=== PATIENT | male | born 1955 | race Caucasian/White ===

== ENCOUNTER 2018-08-20 11:38 | Inpatient (IN) | payer MEDICAID ==
[2018-08-20] MEDS ORDERED: Sodium Chloride 0.9% 1,000 ML IV ONE (12:31)
--- NOTE | 2018-08-20 12:32 | C.PDOC ---
History Of Present Illness 62 yo male comes in for evaluation of Right inguinal painful swelling developed for past month. Pt reports, was seen by Dr. Leung last week and diagnosed with Right inguinal hernia, was referred to ED for further evaluation, possible admission. Pt reports, pain is gradually worsening over time, (+) nausea. Pt sts, CT A/P performed last week with . Otherwise, pt denies fever, chills, known trauma or injury, CP, SOB, dyspnea, palpitation, abd. pain, vomiting, diarrhea, back pain, denies UTI sx, testicular pain or swelling. Ambulate to Ed, appears in pain. Time Seen by Provider: 08/20/18 11:51 Chief Complaint (Nursing): Groin Pain History Per: Patient Past Medical History Reviewed: Historical Data, Nursing Documentation, Vital Signs - Medical History PMH: Atrial Fibrillation Family History: States: No Known Family Hx - Social History Hx Tobacco Use: No Hx Alcohol Use: No Hx Substance Use: No - Immunization History Hx Tetanus Toxoid Vaccination: No Hx Influenza Vaccination: No Hx Pneumococcal Vaccination: No Review Of Systems Except As Marked, All Systems Reviewed And Found Negative. Constitutional: Negative for: Fever, Chills ENT: Negative for: Throat Pain Cardiovascular: Negative for: Chest Pain, Palpitations Respiratory: Negative for: Cough, Shortness of Breath, Wheezing Gastrointestinal: Positive for: Nausea. Negative for: Vomiting, Abdominal Pain, Diarrhea, Melena, Hematochezia, Hematemesis Genitourinary: Positive for: Other ((+) Right ibguinal pain, swelling). Negative for: Dysuria, Frequency, Penile Discharge, Scrotal Pain, Penile Pain Musculoskeletal: Negative for: Neck Pain, Back Pain Skin: Negative for: Rash Neurological: Negative for: Weakness, Numbness, Altered Mental Status, Headache, Dizziness Physical Exam - Physical Exam Appears: Well, Non-toxic, No Acute Distress Skin: Normal Color, Warm, Dry, No Rash Head: Normacephalic Eye(s): bilateral: PERRL Nose: No Flaring, No Discharge Oral Mucosa: Moist Throat: No Erythema, No Drooling Neck: Supple Cardiovascular: Rhythm Regular, No Murmur, No JVD Respiratory: No Decreased Breath Sounds, No Accessory Muscle Use, No Stridor, No Wheezing Gastrointestinal/Abdominal: Soft, No Tenderness, No Distention, No Guarding, No Rebound Back: Normal Inspection Male Genital: No Testicular Tenderness, No Testicular Swelling, Inguinal Tenderness (Right), Inguinal Swelling (Right) Extremity: Normal ROM, No Deformity, No Swelling Neurological/Psych: Oriented x3, Normal Speech, Normal Motor, Normal Sensation, Normal Reflexes ED Course And Treatment - Laboratory Results Result Diagrams: 08/20/18 13:44 08/20/18 13:44 Lab Interpretation: No Acute Changes ECG: Interpreted By Me, Viewed By Me ECG Interpretation: No Acute Changes Interpretation Of ECG: AFib@89/min O2 Sat by Pulse Oximetry: 100 Pulse Ox Interpretation: Normal Progress Note: case discussed with , confirmed for admission with Incarcerated Right inguinal hernia for further surgical tx. results review and discussed with pt, agrees with plan. Disposition - Disposition Disposition: HOSPITALIZED Disposition Time: 12:31 Condition: STABLE Forms: [facility] (Greenlandic) - Clinical Impression Clinical Impression: Incarcerated inguinal hernia
[2018-08-20 13:49] LABS: EOS # 0.1 K/uL (0.0-0.7); MEAN CORPUSCULAR HEMOGLOBIN 31.1 pg (27.0-31.0); MEAN CORPUSCULAR HGB CONC 33.8 g/dL (33.0-37.0); NEUT # 3.4 K/uL (1.8-7.0); NRBC % 0.1 % (0.0-2.0)
[2018-08-20 13:53] LABS: BASO % 0.9 % (0.0-2.0); EOS % 2.6 % (0.0-4.0); HEMOGLOBIN 13.5 g/dL (12.0-18.0); LYMPH # 1.2 K/uL (1.0-4.3); LYMPH % 23.2 % (20.0-40.0); MEAN CELL VOLUME 92.1 fL (80.0-94.0); MEAN PLATELET VOLUME 11.8 fL (7.2-11.7); MONO # 0.5 K/uL (0.0-0.8); MONO % 9.2 % (0.0-10.0); NEUT % 64.1 % (50.0-75.0); RBC 4.35 Mil/uL (4.40-5.90); RED CELL DISTRIBUTION WIDTH 14.2 % (11.5-14.5); WHITE BLOOD COUNT 5.4 K/uL (4.8-10.8)
[2018-08-20 13:58] LABS: INR 1.2; PROTHROMBIN TIME 13.2 SECONDS (9.7-12.2)
[2018-08-20 14:03] LABS: BLOOD UREA NITROGEN 19 mg/dL (9-20); CALCIUM 8.8 mg/dl (8.6-10.4); GFR NON-AFRICAN AMERICAN > 60
--- NOTE | 2018-08-20 18:09 | CP.PCM.PN ---
Subjective - Date & Time of Evaluation Date of Evaluation: 08/20/18 Time of Evaluation: 18:08 - Subjective Subjective: Reason For Consultation: Pre Op cardiac risk assessment 62 yo male unknown to me comes in for evaluation of Right inguinal painful swell ing developed for past month. Pt reports, was seen by Dr. Leung last week and diagnosed with Right inguinal hernia, was referred to ED for further evaluation, possible admission. Pt reports, pain is gradually worsening over time, (+) nausea. Pt sts, CT A/P performed last week with . O therwise, pt denies fever, chills, known trauma or injury, CP, SOB, dyspnea, palpitation, abd. pain, vomiting, diarrhea, back pain, denies UTI sx, testicular pain or swelling. Ambulate to Ed, appears in pain. Chief Complaint (Nursing): Groin Pain History Per: Patient Past Medical History Reviewed: Historical Data, Nursing Documentation, Vital Signs - Medical History PMH: Atrial Fibrillation Family History: States: No Known Family Hx - Social History Hx Tobacco Use: No Hx Alcohol Use: No Hx Substance Use: No - Immunization History Hx Tetanus Toxoid Vaccination: No Hx Influenza Vaccination: No Hx Pneumococcal Vaccination: No Review Of Systems Except As Marked, All Systems Reviewed And Found Negative. Constitutional: Negative for: Fever, Chills ENT: Negative for: Throat Pain Cardiovascular: Negative for: Chest Pain, Palpitations Respiratory: Negative for: Cough, Shortness of Breath, Wheezing Gastrointestinal: Positive for: Nausea. Negative for: Vomiting, Abdominal Pain, Diarrhea, Melena, Hematochezia, Hematemesis Genitourinary: Positive for: Other ((+) Right ibguinal pain, swelling). Negative for: Dysuria, Frequency, Penile Discharge, Scrotal Pain, Penile Pain Musculoskeletal: Negative for: Neck Pain, Back Pain Skin: Negative for: Rash Neurological: Negative for: Weakness, Numbness, Altered Mental Status, Headache, Dizziness Physical Exam - Physical Exam Appears: Well, Non-toxic, No Acute Distress Skin: Normal Color, Warm, Dry, No Rash Head: Normacephalic Eye(s): bilateral: PERRL Nose: No Flaring, No Discharge Oral Mucosa: Moist Throat: No Erythema, No Drooling Neck: Supple Cardiovascular: Rhythm Regular, No Murmur, No JVD Respiratory: No Decreased Breath Sounds, No Accessory Muscle Use, No Stridor, No Wheezing Gastrointestinal/Abdominal: Soft, No Tenderness, No Distention, No Guarding, No Rebound Back: Normal Inspection Male Genital: No Testicular Tenderness, No Testicular Swelling, Inguinal Tenderness (Right), Inguinal Swelling (Right) Extremity: Normal ROM, No Deformity, No Swelling Neurological/Psych: Oriented x3, Normal Speech, Normal Motor, Normal Sensation, Normal Reflexes A/P 62 Male unknown to me consulted for Cardiac risk assessment Recommend stress test and ECHO prior to surgery Objective - Vital Signs/Intake and Output Vital Signs (last 24 hours): Temp Pulse Resp BP Pulse Ox 97.9 F 98 H 20 155/107 H 100 08/20/18 18:05 08/20/18 18:05 08/20/18 18:05 08/20/18 18:05 08/20/18 18:05 - Medications Medications: Current Medications Dextrose/Sodium Chloride (Dextrose 5%/0.45% Ns 1000 Ml) 1,000 mls @ 80 mls/hr IV [id number] Ondansetron HCl (Zofran Inj) 4 mg IVP Q6 PRN PRN Reason: Nausea/Vomiting Pantoprazole Sodium (Protonix Inj) 40 mg IVP DAILY [facility] - Labs Labs: 08/20/18 13:44 08/20/18 13:44 PT 13.2 SECONDS (9.7-12.2) H 08/20/18 13:44 INR 1.2 08/20/18 13:44 APTT 32 SECONDS (21-34) 08/20/18 13:44
[2018-08-20] MEDS: Dextrose 5%/0.45% NS 1,000 ML IV SCH (19:48)
[2018-08-21] MEDS: Dextrose 5%/0.45% NS 1,000 ML IV SCH ×2 (04:15→16:45)
[2018-08-21 07:20] LABS: BASO # 0.1 K/uL (0.0-0.2); BASO % 1.2 % (0.0-2.0); EOS # 0.2 K/uL (0.0-0.7); EOS % 3.4 % (0.0-4.0); HEMOGLOBIN 12.6 g/dL (12.0-18.0); LYMPH # 1.1 K/uL (1.0-4.3); LYMPH % 23.3 % (20.0-40.0); MEAN CELL VOLUME 91.3 fL (80.0-94.0); MEAN CORPUSCULAR HEMOGLOBIN 30.6 pg (27.0-31.0); MEAN CORPUSCULAR HGB CONC 33.5 g/dL (33.0-37.0); MEAN PLATELET VOLUME 12.1 fL (7.2-11.7); MONO # 0.4 K/uL (0.0-0.8); MONO % 9.1 % (0.0-10.0); NEUT # 2.9 K/uL (1.8-7.0); NRBC % 0.1 % (0.0-2.0); PLATELET COUNT 73 K/uL (130-400); RBC 4.13 Mil/uL (4.40-5.90); WHITE BLOOD COUNT 4.6 K/uL (4.8-10.8)
[2018-08-21 07:52] LABS: BLOOD UREA NITROGEN 20 mg/dL (9-20); CALCIUM 8.4 mg/dl (8.6-10.4); GFR NON-AFRICAN AMERICAN > 60
[2018-08-21] MEDS ORDERED: Caffeine Citrated **INJ** 20 MG/ML IV ONE (07:52)
[2018-08-21 10:05] LABS: BASOPHIL 1 % (0-2); EOSINOPHIL 3 % (0-4); LYMPHOCYTE 26 % (20-40); MONOCYTE 7 % (0-10); NEUTROPHIL 62 % (50-75); PLATELET ESTIMATE DECREASED (NORMAL); REACTIVE LYMPHOCYTES 1 % (0-0); TOTAL CELLS COUNTED 100
[2018-08-21] MEDS: diltiaZEM 240 mg/24 Hours CD Cap PO SCH (10:38)
[2018-08-21 11:55] LABS: INR 1.2; PROTHROMBIN TIME 12.9 SECONDS (9.7-12.2)
[2018-08-21 12:14] LABS: ALB/GLOB RATIO 1.6 (1.0-2.1); ALBUMIN 4.2 g/dL (3.5-5.0); ALT/SGPT 33 U/L (21-72); AST/SGOT 30 U/L (17-59); BLOOD UREA NITROGEN 18 mg/dL (9-20); CALCIUM 8.7 mg/dl (8.6-10.4); GFR NON-AFRICAN AMERICAN > 60
[2018-08-21 12:33] LABS: HEPATITIS B SURFACE AG Negative (NEGATIVE)
[2018-08-21 12:39] LABS: HEPATITIS A IGM NEGATIVE (NEGATIVE); HEPATITIS B CORE AB NEGATIVE (NEGATIVE)
[2018-08-21 14:25] LABS: HEPATITIS C ANTIBODY Reactive (NEGATIVE)
--- NOTE | 2018-08-21 14:35 | CP.PCM.PN ---
Subjective - Date & Time of Evaluation Date of Evaluation: 08/21/18 Time of Evaluation: 14:30 - Subjective Subjective: Progress note. Attending: Dr. Delgado. Pt seen and examined at bedside. No acute distress. No events overnight. No fevers, chills, vomiting, diarrhea. Getting worked up for thrombocytopenia. Inguinal hernia. Objective - Vital Signs/Intake and Output Vital Signs (last 24 hours): Temp Pulse Resp BP Pulse Ox 98.2 F 75 20 125/80 98 08/21/18 08:00 08/21/18 08:00 08/21/18 08:00 08/21/18 08:00 08/21/18 08:00 Intake and Output: 08/21/18 08/21/18 06:59 18:59 Intake Total 18 640 Balance 18 640 - Medications Medications: Current Medications Carvedilol (Coreg) 25 mg PO BID [facility] Last Admin: 08/21/18 10:38 Dose: Not Given Diltiazem HCl (Cardizem) 60 mg PO TID [facility] Last Admin: 08/21/18 14:22 Dose: Not Given Diltiazem HCl (Cardizem Cd) 240 mg PO DAILY [facility] Last Admin: 08/21/18 10:38 Dose: Not Given Docusate Sodium (Colace) 100 mg PO BID [facility] Last Admin: 08/21/18 10:01 Dose: Not Given Enalapril Maleate (Vasotec) 5 mg PO DAILY [facility] Last Admin: 08/21/18 10:39 Dose: Not Given Dextrose/Sodium Chloride (Dextrose 5%/0.45% Ns 1000 Ml) 1,000 mls @ 80 mls/hr IV .[id number] [facility] Last Admin: 08/21/18 04:15 Dose: Not Given Influenza Virus Vaccine (Fluzone Quad [id number]) 60 mcg IM .ONCE ONE Stop: 08/23/18 10:01 Nicotine (Nicoderm Cq) 1 patch TD DAILY [facility] Last Admin: 08/21/18 10:39 Dose: Not Given Ondansetron HCl (Zofran Inj) 4 mg IVP Q6 PRN PRN Reason: Nausea/Vomiting Pantoprazole Sodium (Protonix Inj) 40 mg IVP DAILY [facility] Last Admin: 08/21/18 10:39 Dose: Not Given Pneumococcal Polyvalent Vaccine (Pneumovax 23 Vaccine) 0.5 ml IM .ONCE ONE Stop: 08/23/18 10:01 - Labs Labs: 08/21/18 07:07 08/21/18 11:25 PT 12.9 SECONDS (9.7-12.2) H 08/21/18 11:25 INR 1.2 08/21/18 11:25 APTT 34 SECONDS (21-34) 08/21/18 11:25 - Constitutional Appears: Non-toxic, No Acute Distress - Head Exam Head Exam: ATRAUMATIC, NORMAL INSPECTION, NORMOCEPHALIC - Eye Exam Eye Exam: EOMI - ENT Exam ENT Exam: Mucous Membranes Moist - Neck Exam Neck Exam: Full ROM, Normal Inspection - Respiratory Exam Respiratory Exam: absent: Respiratory Distress - Cardiovascular Exam Cardiovascular Exam: +S1, +S2 - GI/Abdominal Exam GI & Abdominal Exam: Soft, Normal Bowel Sounds. absent: Tenderness - Extremities Exam Extremities Exam: Full ROM, Normal Inspection - Back Exam Back Exam: NORMAL INSPECTION - Neurological Exam Neurological Exam: Alert, Awake, Oriented x3 - Psychiatric Exam Psychiatric exam: Normal Affect, Normal Mood - Skin Skin Exam: Dry, Intact, Normal Color, Warm Assessment and Plan - Assessment and Plan (Free Text) Assessment: This is a 62 yo male with 1. Incarcerated inguinal hernia -general surgery consult. Dr. Lenug. recs appreciated. -pt went for stress test today -awaiting results -D5 / NS 2. hx of atrial fibrillation -coreg 25 mg po bid -cardizem 60 mg po bid 3. hx of constipation -colace 100 mg po bid 4. thrombocytopenia -hiv 4th generation pending -hep panel pending -unclear etiology -heme/onc consult. Dr. Ponce. recs appreciated. 5. Hx of HTN -enalapril 5 mg po daily 6. hx of tobacco abuse -nicotine patch -encourage smoking cessation 7. Nasusea -zofran 4 mg po q 6 hrs 8. GI/DVT ppx -protonix 40 mg daily -pre op for surgery discussed with Dr. Delgado.
[2018-08-21] MEDS ORDERED: Dextrose 50% SYRINGE Inj (50 ml) IV STA (16:42)
[2018-08-21] MEDS ORDERED: Midazolam 2 MG/2 ML VIAL ONE (18:05)
[2018-08-21] MEDS ORDERED: Propofol 10 mg/ml Inj (20 ML) ONE (18:05)
[2018-08-21] MEDS ORDERED: Bupivacaine HCl 0.5% PF (30 ml) Inj ONE (18:27)
[2018-08-21] MEDS ORDERED: Succinylcholine Chloride 20 mg/ml Syr (5 ml) IV ONE (18:27)
[2018-08-21] MEDS ORDERED: ceFAZolin 1 gm in NS 1 GM/100 ML BAG IVPB ONE (18:27)
--- NOTE | 2018-08-21 18:31 | CP.PCM.CON ---
History of Present Illness - History of Present Illness History of Present Illness: 62 year old male with a a history of inguinal hernia admitted to the hospital with incarcerated hernia s/p repair, with thrombocytopenia and leukopenia. The patient notes he was told he had low WBC in the past but not low platelets. He denies abnormal bleeding and bruising. He does not drink alcohol. Past medical history: Right inguinal hernia Past surgical history: Right inguinal hernia repair. Family history: Denies hematologic and oncologic problems Social history: Smokes 3-4 cigarettes daily x 40 years, denies alcohol, and illicit drug use. Allergies: NKA Review of systems: All remaining review of systems including HEENT, cardiovascular, respiratory, gastrointestinal, genitourinary, musculoskeletal, dermatologic, neurologic, and psychiatric are negative unless mentioned in the HPI. Past Patient History - Past Medical History & Family History Past Medical History?: Yes - Past Social History Smoking Status: Current Some Days Smoker - CARDIAC Hx Atrial Fibrillation: Yes - PULMONARY Hx Respiratory Disorders: No - NEUROLOGICAL Hx Neurological Disorder: No - HEENT Hx HEENT Problems: No - RENAL Hx Chronic Kidney Disease: No - ENDOCRINE/METABOLIC Hx Endocrine Disorders: No - HEMATOLOGICAL/ONCOLOGICAL Hx Blood Disorders: No - INTEGUMENTARY Hx Dermatological Problems: No - MUSCULOSKELETAL/RHEUMATOLOGICAL Hx Musculoskeletal Disorders: No Hx Falls: No - GASTROINTESTINAL Hx Gastrointestinal Disorders: No - GENITOURINARY/GYNECOLOGICAL Hx Genitourinary Disorders: No - PSYCHIATRIC Hx Psychophysiologic Disorder: No Hx Substance Use: No - SURGICAL HISTORY Hx Surgeries: No - ANESTHESIA Hx Anesthesia: No Meds Allergies/Adverse Reactions: Allergies Allergy/AdvReac Type Severity Reaction Status Date / Time No Known Allergies Allergy Verified 08/20/18 12:20 - Medications Medications: Current Medications Carvedilol (Coreg) 25 mg PO BID [facility] Last Admin: 08/21/18 17:59 Dose: Not Given Diltiazem HCl (Cardizem) 60 mg PO TID [facility] Last Admin: 08/21/18 17:59 Dose: Not Given Diltiazem HCl (Cardizem Cd) 240 mg PO DAILY [facility] Last Admin: 08/21/18 10:38 Dose: Not Given Docusate Sodium (Colace) 100 mg PO BID [facility] Last Admin: 08/21/18 17:59 Dose: Not Given Enalapril Maleate (Vasotec) 5 mg PO DAILY [facility] Last Admin: 08/21/18 10:39 Dose: Not Given Dextrose/Sodium Chloride (Dextrose 5%/0.45% Ns 1000 Ml) 1,000 mls @ 80 mls/hr IV .[id number] [facility] Last Admin: 08/21/18 16:45 Dose: 80 mls/hr Influenza Virus Vaccine (Fluzone Quad [id number]) 60 mcg IM .ONCE ONE Stop: 08/23/18 10:01 Nicotine (Nicoderm Cq) 1 patch TD DAILY [facility] Last Admin: 08/21/18 10:39 Dose: Not Given Ondansetron HCl (Zofran Inj) 4 mg IVP Q6 PRN PRN Reason: Nausea/Vomiting Pantoprazole Sodium (Protonix Inj) 40 mg IVP DAILY [facility] Last Admin: 08/21/18 10:39 Dose: Not Given Pneumococcal Polyvalent Vaccine (Pneumovax 23 Vaccine) 0.5 ml IM .ONCE ONE Stop: 08/23/18 10:01 Physical Exam - Head Exam Head Exam: ATRAUMATIC - Eye Exam Eye Exam: Normal appearance - ENT Exam ENT Exam: Mucous Membranes Dry - Respiratory Exam Respiratory Exam: NORMAL BREATHING PATTERN - Cardiovascular Exam Cardiovascular Exam: +S1, +S2 - GI/Abdominal Exam GI & Abdominal Exam: Normal Bowel Sounds - Extremities Exam Extremities exam: Positive for: normal inspection - Neurological Exam Neurological exam: Oriented x3 - Psychiatric Exam Psychiatric exam: Normal Affect, Normal Mood - Skin Skin Exam: Warm Results - Vital Signs Recent Vital Signs: Last Vital Signs Temp 98 F 08/21/18 16:00 Pulse 88 08/21/18 16:00 Resp 20 08/21/18 16:00 BP 151/99 H 08/21/18 16:00 Pulse Ox 99 08/21/18 16:00 - Labs Result Diagrams: 08/21/18 07:07 08/21/18 11:25 Labs: Laboratory Results - last 24 hr 08/21/18 08/21/18 08/21/18 07:07 07:07 11:25 WBC 4.6 L RBC 4.13 L Hgb 12.6 Hct 37.7 MCV 91.3 MCH 30.6 MCHC 33.5 RDW 14.0 Plt Count 73 L MPV 12.1 H Neut % (Auto) 63.0 Lymph % (Auto) 23.3 [place] % (Auto) 9.1 Eos % (Auto) 3.4 Baso % (Auto) 1.2 Neut # (Auto) 2.9 Lymph # (Auto) 1.1 [place] # (Auto) 0.4 Eos # (Auto) 0.2 Baso # (Auto) 0.1 Neutrophils % (Manual) 62 Lymphocytes % (Manual) 26 Reactive Lymphs % 1 H Monocytes % (Manual) 7 Eosinophils % (Manual) 3 Basophils % (Manual) 1 Platelet Estimate Decreased L PT 12.9 H INR 1.2 APTT 34 Sodium 135 Potassium 3.9 Chloride 103 Carbon Dioxide 26 Anion Gap 11 BUN 20 Creatinine 0.8 Est GFR ( Amer) > 60 Est GFR (Non-Af Amer) > 60 POC Glucose (mg/dL) Random Glucose 97 Calcium 8.4 L Phosphorus Magnesium Total Bilirubin AST ALT Alkaline Phosphatase Total Protein Albumin Globulin Albumin/Globulin Ratio Hepatitis A IgM Ab Hep Bs Antigen Hep B Core IgM Ab Hepatitis C Antibody 08/21/18 08/21/18 08/21/18 11:25 11:25 16:30 WBC RBC Hgb Hct MCV MCH MCHC RDW Plt Count MPV Neut % (Auto) Lymph % (Auto) [place] % (Auto) Eos % (Auto) Baso % (Auto) Neut # (Auto) Lymph # (Auto) [place] # (Auto) Eos # (Auto) Baso # (Auto) Neutrophils % (Manual) Lymphocytes % (Manual) Reactive Lymphs % Monocytes % (Manual) Eosinophils % (Manual) Basophils % (Manual) Platelet Estimate PT INR APTT Sodium 135 Potassium 4.2 Chloride 100 Carbon Dioxide 28 Anion Gap 12 BUN 18 Creatinine 0.8 Est GFR ( Amer) > 60 Est GFR (Non-Af Amer) > 60 POC Glucose (mg/dL) 55 L Random Glucose 90 Calcium 8.7 Phosphorus 3.2 Magnesium 1.8 Total Bilirubin 0.8 AST 30 ALT 33 Alkaline Phosphatase 93 Total Protein 6.9 Albumin 4.2 Globulin 2.7 Albumin/Globulin Ratio 1.6 Hepatitis A IgM Ab Negative Hep Bs Antigen Negative Hep B Core IgM Ab Negative Hepatitis C Antibody Reactive 08/21/18 16:33 WBC RBC Hgb Hct MCV MCH MCHC RDW Plt Count MPV Neut % (Auto) Lymph % (Auto) [place] % (Auto) Eos % (Auto) Baso % (Auto) Neut # (Auto) Lymph # (Auto) [place] # (Auto) Eos # (Auto) Baso # (Auto) Neutrophils % (Manual) Lymphocytes % (Manual) Reactive Lymphs % Monocytes % (Manual) Eosinophils % (Manual) Basophils % (Manual) Platelet Estimate PT INR APTT Sodium Potassium Chloride Carbon Dioxide Anion Gap BUN Creatinine Est GFR ( Amer) Est GFR (Non-Af Amer) POC Glucose (mg/dL) 57 L Random Glucose Calcium Phosphorus Magnesium Total Bilirubin AST ALT Alkaline Phosphatase Total Protein Albumin Globulin Albumin/Globulin Ratio Hepatitis A IgM Ab Hep Bs Antigen Hep B Core IgM Ab Hepatitis C Antibody Assessment & Plan (1) Pancytopenia Assessment and Plan: Hepatitis C AB positive ? liver disease; check ultrasound of the abdomen will check retic count, b12, folate, ferritin to further characterize anemia HIV pending Thank you for this interesting consult. Status: Acute
[2018-08-21] MEDS ORDERED: Esmolol 100 mg/10ml Inj IV ONE (18:32)
[2018-08-21] MEDS ORDERED: Neostigmine Methylsulfate 3mg/3ml Syringe IV ONE (18:33)
[2018-08-21] MEDS ORDERED: Oxycodone/Acetaminophen 5/325 mg Tab PO PRN (18:49)
--- NOTE | 2018-08-21 18:57 | CP.PCM.PN ---
Subjective - Date & Time of Evaluation Date of Evaluation: 08/21/18 Time of Evaluation: 18:53 - Subjective Subjective: Patient seen and evaluated Normal stress test Severe TR by ECHO Moderate Pulmonary HTN Normal EF Denies chest pain and dyspnea Hemodynamically stable This patient assessed as moderate cardiac risk for Hernia surgery under general anesthesia If benefit outweighs the risk please proceed with the surgery Cardiac point of view There is no contra indication for the surgery Objective - Vital Signs/Intake and Output Vital Signs (last 24 hours): Temp Pulse Resp BP Pulse Ox 98 F 88 20 151/99 H 99 08/21/18 16:00 08/21/18 16:00 08/21/18 16:00 08/21/18 16:00 08/21/18 16:00 Intake and Output: 08/21/18 08/21/18 06:59 18:59 Intake Total 18 1060 Balance 18 1060 - Medications Medications: Current Medications Carvedilol (Coreg) 25 mg PO BID [facility] Last Admin: 08/21/18 17:59 Dose: Not Given Diltiazem HCl (Cardizem) 60 mg PO TID [facility] Last Admin: 08/21/18 17:59 Dose: Not Given Diltiazem HCl (Cardizem Cd) 240 mg PO DAILY [facility] Last Admin: 08/21/18 10:38 Dose: Not Given Docusate Sodium (Colace) 100 mg PO BID [facility] Last Admin: 08/21/18 17:59 Dose: Not Given Enalapril Maleate (Vasotec) 5 mg PO DAILY [facility] Last Admin: 08/21/18 10:39 Dose: Not Given Dextrose/Sodium Chloride (Dextrose 5%/0.45% Ns 1000 Ml) 1,000 mls @ 80 mls/hr IV .[id number] [facility] Last Admin: 08/21/18 16:45 Dose: 80 mls/hr Influenza Virus Vaccine (Fluzone Quad [id number]) 60 mcg IM .ONCE ONE Stop: 08/23/18 10:01 Nicotine (Nicoderm Cq) 1 patch TD DAILY [facility] Last Admin: 08/21/18 10:39 Dose: Not Given Ondansetron HCl (Zofran Inj) 4 mg IVP Q6 PRN PRN Reason: Nausea/Vomiting Oxycodone/Acetaminophen (Percocet 5/325 Mg Tab) 2 tab PO Q4H PRN PRN Reason: pain Stop: 08/24/18 18:50 Pantoprazole Sodium (Protonix Inj) 40 mg IVP DAILY [facility] Last Admin: 08/21/18 10:39 Dose: Not Given Pneumococcal Polyvalent Vaccine (Pneumovax 23 Vaccine) 0.5 ml IM .ONCE ONE Stop: 08/23/18 10:01 - Labs Labs: 08/21/18 07:07 08/21/18 11:25 PT 12.9 SECONDS (9.7-12.2) H 08/21/18 11:25 INR 1.2 08/21/18 11:25 APTT 34 SECONDS (21-34) 08/21/18 11:25
--- NOTE | 2018-08-21 19:15 | CARD ---
APPROVED REPORT Date of service: 08/21/2018 EXAM: Two-dimensional and M-mode echocardiogram with Doppler and color Doppler. INDICATION pre op 2D DIMENSIONS IVSd0.9 (0.7-1.1cm)Aortic Root (2D)2.9 (2.0-3.7cm) LVDd4.8 (3.9-5.9cm)PWd0.9 (0.7-1.1cm) LA Dfupuv97 (18-58mL)LVDs3.5 (2.5-4.0cm) FS (%) 27.1 %LVEF (%)55.0 (>50%) IVC0.00 cm M-Mode DIMENSIONS RVDd2.81 (2.1-3.2cm)Left Atrium (MM)4.17 (2.5-4.0cm) IVSd1.05 (0.7-1.1cm)Aortic Root2.77 (2.2-3.7cm) LVDd5.15 (4.0-5.6cm)Aortic Cusp Exc.1.66 (1.5-2.0cm) PWd0.98 (0.7-1.1cm)FS (%) 36 % LVDs3.28 (2.0-3.8cm)TAPSE12.54 cm LVEF (%)66 (>50%) Mitral Valve MV E Ffptljyc72.7cm/sE/A ratio0.0 TDI Lateral E' Peak V12.55cm/sMedial E' Peak V6.87cm/sE/Lateral E'6.9 E/Medial E'12.6 Tricuspid Valve TR Peak Eqozpsab354vz/sTR Peak Gr.[id number] LEFT VENTRICLE The left ventricle is normal size. There is normal left ventricular wall thickness. The left ventricular systolic function is normal. The Ejection Fraction is - 55%. There is normal LV segmental wall motion. Grade III restrictive diastolic dysfunction. RIGHT VENTRICLE The right ventricle is normal size. The right ventricular systolic function is normal. ATRIA The left atrium is moderately dilated. The right atrium is moderately dilated. AORTIC VALVE The aortic valve is normal in structure. No aortic regurgitation is present. There is no aortic valvular stenosis. MITRAL VALVE The mitral valve is normal in structure. Mild mitral regurgitation. TRICUSPID VALVE The tricuspid valve is normal in structure. There is moderate tricuspid regurgitation. Right ventricular systolic pressure is estimated at - 52 mmHg. There is moderate pulmonary hypertension. PULMONIC VALVE The pulmonary valve is normal in structure. GREAT VESSELS The aortic root is normal in size. The IVC is normal in size and collapses >50% with inspiration. PERICARDIAL EFFUSION There is no pericardial effusion. <Conclusion> The left ventricle is normal size. There is normal LV segmental wall motion. The left ventricular systolic function is normal. The Ejection Fraction is estimated - 55%. Grade III restrictive diastolic dysfunction. The right ventricular systolic function is normal. Significant bi-atrial dilatation. Mild mitral regurgitation. There is moderate tricuspid regurgitation. Right ventricular systolic pressure is estimated at - 52 mmHg compatible with moderate pulmonary hypertension. There is no pericardial effusion.
[2018-08-21] MEDS: HYDROmorphone 0.5 mg/0.5 ml ISec IVP PRN ×3 (19:28→20:25)
[2018-08-21] MEDS ORDERED: Lactated Ringer's 1,000 ML IV ONE (19:45)
[2018-08-21] MEDS ORDERED: Dextrose 5%/0.45% NS 1,000 ML IV ONE (19:45)
[2018-08-21 23:26] VITALS: RESP 20
[2018-08-22] MEDS: ceFAZolin IV 1 gm in Dextrose 1 GM/50 ML BAG IVPB SCH ×3 (01:05→17:33)
--- NOTE | 2018-08-22 04:59 | OP ---
PROCEDURE DATE: 08/21/2018 PREOPERATIVE DIAGNOSIS: Incarcerated right inguinal hernia. POSTOPERATIVE DIAGNOSIS: Incarcerated right inguinal hernia. PROCEDURES PERFORMED: 1. Repair of incarcerated right inguinal hernia. 2. Excision of fasciotomy of pelvic mass. SURGEON: Gregory Leung MD ANESTHESIA: General. ESTIMATED BLOOD LOSS: 40 mL. POSTOPERATIVE CONDITION: Stable. INDICATIONS FOR SURGERY: This is a 62-year-old male presents with a history of an incarcerated hernia, admitted through the emergency room. He underwent cardiac clearance today due to a history of coronary disease and arrhythmia and has been cleared by Cardiology. He is taken now to the operating room. GROSS FINDINGS: There was an incarcerated right inguinal hernia. It was indirect in form, reduced, and repaired with a ProLoop plug. An incidental finding of a 5 cm soft tissue tumor was noted in the pelvis associated with the spermatic cord, and this was removed during the procedure. DESCRIPTION OF PROCEDURE: The patient was taken to the operating room. General anesthesia was administered. The right groin was prepped and draped. A standard right inguinal incision was made. Using the Bovie, the subcutaneous tissue was divided. An external oblique aponeurosis was opened, and the spermatic cord was looped with Rommel drain. A large fatty tumor was associated with this, and it was carefully dissected free, and a radical resection was performed, clearing all down to good and normal tissue. This was removed and sent for specimen. There was noted to be bleeding from the cord, and the spermatic cord was repaired with 7-0 Prolene, and post repair, blood low was confirmed by Doppler. Next, the hernia sac was dissected free, inverted, and the hernia plug was inserted into the hernia defect. The plug was sutured in place with interrupted 2-0 Prolene. The wound was irrigated with copious amounts of saline solution. The external oblique aponeurosis was closed with 2-0 Monocryl. There was a large tissue defect and space from the previous hernia, and for this reason, full thickness flaps were mobilized, counter incisions were made, and a 22 sq cm advancement flap closure was performed with multiple layers of Monocryl, subcuticular Monocryl, and skin clips. The patient tolerated the procedure well and returned to the recovery room in stable condition. Gregory Leung MD [facility] # [id number]
[2018-08-22] MEDS: Dextrose 5%/0.45% NS 1,000 ML IV SCH ×3 (05:15→21:47)
[2018-08-22 08:04] LABS: BASO # 0.1 K/uL (0.0-0.2); BASO % 0.5 % (0.0-2.0); HEMOGLOBIN 12.6 g/dL (12.0-18.0); LYMPH # 0.6 K/uL (1.0-4.3); LYMPH % 4.1 % (20.0-40.0); MEAN CELL VOLUME 91.7 fL (80.0-94.0); MEAN CORPUSCULAR HGB CONC 33.8 g/dL (33.0-37.0); MEAN PLATELET VOLUME 12.9 fL (7.2-11.7); MONO % 6.8 % (0.0-10.0); NEUT # 13.1 K/uL (1.8-7.0); NEUT % 88.6 % (50.0-75.0); PLATELET COUNT 85 K/uL (130-400); RBC 4.05 Mil/uL (4.40-5.90); RED CELL DISTRIBUTION WIDTH 13.9 % (11.5-14.5)
[2018-08-22 08:05] LABS: WHITE BLOOD COUNT 14.8 K/uL (4.8-10.8)
[2018-08-22 08:28] LABS: ALBUMIN 3.9 g/dL (3.5-5.0); ALT/SGPT 26 U/L (21-72); AST/SGOT 23 U/L (17-59); BLOOD UREA NITROGEN 14 mg/dL (9-20); CALCIUM 8.8 mg/dl (8.6-10.4); GFR NON-AFRICAN AMERICAN > 60
[2018-08-22 08:53] LABS: BANDS 2 % (0-2); LYMPHOCYTE 3 % (20-40); MONOCYTE 2 % (0-10); NEUTROPHIL 93 % (50-75); TOTAL CELLS COUNTED 100
[2018-08-22 08:55] LABS: PLATELET ESTIMATE DECREASED (NORMAL)
[2018-08-22 09:14] LABS: ALB/GLOB RATIO 1.5 (1.0-2.1)
--- NOTE | 2018-08-22 09:32 | US ---
Date of service: 08/22/2018 HISTORY: rule out cirrhosis and splenomegaly COMPARISON: None. TECHNIQUE: Sonographic evaluation of the abdomen. FINDINGS: LIVER: Measures 15.3 cm. Normal echogenicity of the liver parenchyma. No mass. No intrahepatic bile duct dilatation. GALLBLADDER: Unremarkable. No gallstones. COMMON BILE DUCT: Measures 3.5 mm. No stones. No dilatation. PANCREAS: Unremarkable as visualized. No mass. No ductal dilatation. RIGHT KIDNEY: Measures 11.5cm. Normal echogenicity. No calculus, mass, or hydronephrosis. LEFT KIDNEY: Measures 10.4cm. Normal echogenicity. No calculus, mass, or hydronephrosis. SPLEEN: Normal in size and contour. No mass. AORTA: No aneurysmal dilatation. IVC: Unremarkable. OTHER FINDINGS: None. IMPRESSION: Unremarkable abdominal sonogram.
[2018-08-22] MEDS: diltiaZEM 240 mg/24 Hours CD Cap PO SCH (10:01)
--- NOTE | 2018-08-22 10:40 | CARD ---
APPROVED REPORT Date of service: 08/21/2018 Protocol: LEXISCAN Test Type: LEXISCAN STRESS Test Indications: PRE OP Target HR: 156 bpm Resting ECG: ATRIAL FIBRILLATION Resting Heart Rate: 77 bpm Resting Blood Pressure: 132/80mmHg submaximum (85%): 133 bpm TEST SUMMARY PREINFSNHYPERV.02:[id number]/80.1. INFUSIONDOSE 100:300.00.01.080/.0. [id number]:[id number]/80.0. PROCEDURE Pharmacologic stress testing was performed using 0.4mg per 5ml of regadenoson given intravenously over 7-10 seconds. POST EXERCISE Reason for Termination: Protocol Completed Target HR: No Max HR: 80 bpm 69% of Maximum Predicted HR: 156 bpm Exercise duration: 00:30 min:sec, 0 Stage Exercise capacity: 1.0METs Max Blood Pressure: 132/80mmHg Blood Pressure response to exercise: normal resting BP - appropriate response Heart Rate response to exercise: appropriate Chest Pain: No, none Angina index: 0 Arrhythmia: No, none FROM BASELINE ST Change: No, none Deviation: 0 mm INTERPRETATION Stress EKG Conclusion: NEGATIVE LEXISCAN STRESS TEST NORMAL BP RESPONSE TO LEXISCAN NUCLEAR STUDIES TO BE READ SEPARATELY EXAM: Myocardial Perfusion STRESS/REST Imaging Protocol The imaging protocol used to acquire images was Stress Tc-99m/rest Tc-99m 1 day Stress Spect myocardial perfusion imaging was performed in supine position 41 minutes following the injection of 10.6 mCi of Tc-99 Myoview. Gated Rest Spect was performed 40 minutes after intravenous 27 mCi Tc-99 Myoview injection. The images were gated to evaluate regional wall motion and calculate ventricular ejection fraction.Images were reconstructed using backfilter projection method in short horizontal and verticle long axis. Spect slices were generated. RESTING DATA EDV87.59umTR6.45L/min ESV44.00mlMyocardial Meqn815.50g Av. Heart Rate79.00bpm EF50.00% STRESS DATA EDV99.44xzBA2.55L/min ESV47.00mlMyocardial Nrwc421.50g EF52.50% Regional WT score at stress:0.00 Regional WM score at stress:0.00 Summed WT score at stress:11.50 Av. Heart Rate88.00bpmSummed WM score at stress:14.00 LV Perf. Quant 17 Seg. SSS0.00 17 Seg. SRS0.00 17 Seg. SDS0.00 Stress Defect Extent (% LAD)0.00Rest Defect Extent (% LAD)0.00Rev. Defect Extent (% LAD)0.00 Stress Defect Extent (% LCX)2.50Rest Defect Extent (% LCX)0.00Rev. Defect Extent (% LCX)2.50 Stress Defect Extent (% RCA)0.00Rest Defect Extent (% RCA)0.00Rev. Defect Extent (% RCA)0.00 Stress Defect Extent (% SILVER)0.45Rest Defect Extent (% SILVER)0.00Rev. Defect Extent (% SILVER)0.45 Other Information Quality:Good IMPRESSION Normal Myocardial Perfusion exercise stress study Left Ventricle LV Function:Left ventricle systolic function is normal. The Ejection Fraction is >55%. Metabolism/Perfusion There are no perfusion/metabolism defects. Conclusion 1. Normal lexiscan nuclear stress test. Normal EF
[2018-08-22 12:06] LABS: INR 1.2; PROTHROMBIN TIME 13.4 SECONDS (9.7-12.2)
--- NOTE | 2018-08-22 15:14 | CP.PCM.PN ---
Subjective - Date & Time of Evaluation Date of Evaluation: 08/22/18 Time of Evaluation: 15:10 - Subjective Subjective: Progress note. Attending: Dr. Delgado. Pt seen and examined at bedside. No acute distress. No events overnight. No fevers, chills. Pt is reporting some nausea and vomiting. stat arterial dopplers ordered. Objective - Vital Signs/Intake and Output Vital Signs (last 24 hours): Temp Pulse Resp BP Pulse Ox 97.9 F 89 20 137/78 98 08/22/18 06:30 08/22/18 06:30 08/22/18 06:30 08/22/18 10:05 08/22/18 06:30 Intake and Output: 08/22/18 08/22/18 06:59 18:59 Intake Total 50 650 Output Total 300 Balance 50 350 - Medications Medications: Current Medications Carvedilol (Coreg) 25 mg PO BID [facility] Last Admin: 08/22/18 10:04 Dose: 25 mg Diltiazem HCl (Cardizem) 60 mg PO TID [facility] Last Admin: 08/22/18 14:30 Dose: Not Given Diltiazem HCl (Cardizem Cd) 240 mg PO DAILY [facility] Last Admin: 08/22/18 10:01 Dose: 240 mg Docusate Sodium (Colace) 100 mg PO BID [facility] Last Admin: 08/22/18 10:01 Dose: 100 mg Enalapril Maleate (Vasotec) 5 mg PO DAILY [facility] Last Admin: 08/22/18 10:05 Dose: 5 mg Hydromorphone HCl (Dilaudid) 0.5 mg IVP Q15M PRN PRN Reason: Pain, severe (8-10) Last Admin: 08/21/18 20:25 Dose: 0.5 mg Dextrose/Sodium Chloride (Dextrose 5%/0.45% Ns 1000 Ml) 1,000 mls @ 80 mls/hr IV .[id number] [facility] Last Admin: 08/22/18 05:15 Dose: Not Given Cefazolin Sodium/Dextrose (Ancef Iv 1 Gm Duplex) 1 gm in 50 mls @ 100 mls/hr IVPB Q8H [facility]; Protocol Last Admin: 08/22/18 10:37 Dose: 100 mls/hr Influenza Virus Vaccine (Fluzone Quad 0824-0626) 60 mcg IM .ONCE ONE Stop: 08/23/18 10:01 Nicotine (Nicoderm Cq) 1 patch TD DAILY [facility] Last Admin: 08/22/18 10:09 Dose: Not Given Ondansetron HCl (Zofran Inj) 4 mg IVP Q6 PRN PRN Reason: Nausea/Vomiting Last Admin: 08/22/18 08:41 Dose: 4 mg Oxycodone/Acetaminophen (Percocet 5/325 Mg Tab) 2 tab PO Q4H PRN PRN Reason: pain Stop: 08/24/18 18:50 Pantoprazole Sodium (Protonix Inj) 40 mg IVP DAILY [facility] Last Admin: 08/22/18 10:04 Dose: 40 mg Pneumococcal Polyvalent Vaccine (Pneumovax 23 Vaccine) 0.5 ml IM .ONCE ONE Stop: 08/23/18 10:01 - Labs Labs: 08/22/18 07:59 08/22/18 07:59 PT 13.4 SECONDS (9.7-12.2) H 08/22/18 11:42 INR 1.2 08/22/18 11:42 APTT 25 SECONDS (21-34) D 08/22/18 11:42 - Constitutional Appears: Non-toxic, No Acute Distress - Head Exam Head Exam: ATRAUMATIC, NORMAL INSPECTION, NORMOCEPHALIC - Eye Exam Eye Exam: EOMI - ENT Exam ENT Exam: Mucous Membranes Moist - Respiratory Exam Respiratory Exam: NORMAL BREATHING PATTERN. absent: Respiratory Distress - Cardiovascular Exam Cardiovascular Exam: +S1, +S2 - GI/Abdominal Exam Additional comments: dressing clean dry intact - Extremities Exam Extremities Exam: absent: Full ROM, Normal Inspection Additional comments: dusky and blue right lower extremity, sensation still somewhat intact with motor intact, right also somewhat dusky - Neurological Exam Neurological Exam: Alert, Awake, Oriented x3 - Psychiatric Exam Psychiatric exam: Normal Affect, Normal Mood - Skin Skin Exam: Dry, Intact. absent: Normal Color, Warm Assessment and Plan - Assessment and Plan (Free Text) Assessment: This is a 62 yo male with 1. Incarcerated inguinal hernia -general surgery consult. Dr. Leung. recs appreciated. -pt is s/p hernia repair -post op nausea and vomiting, giving zofran and reglan 2. dusky/blue extremity -stat arterial dopplers ordered 2. hx of atrial fibrillation -coreg 25 mg po bid -cardizem 60 mg po bid -need to decide on resuming anticoagulation 3. hx of constipation -colace 100 mg po bid 4. thrombocytopenia -hiv 4th generation pending -hep panel pending -unclear etiology -heme/onc consult. Dr. Ponce. recs appreciated. 5. Hx of HTN -enalapril 5 mg po daily 6. hx of tobacco abuse -nicotine patch -encourage smoking cessation 7. Nasusea -zofran 4 mg po q 6 hrs 8. GI/DVT ppx -protonix 40 mg daily discussed with Dr. Delgado.
--- NOTE | 2018-08-22 15:59 | VASCLAB ---
Date of service: 08/22/2018 STUDY DESCRIPTION: Lower Extremity Arterial Exam (PVR). HISTORY: cold/blue extremity PRIORS: None. TECHNIQUE: Pulse volume recording waveforms and segmental pressures of bilateral lower extremities at multiple levels were obtained. Ankle Brachial Indices (ABIs) were calculated. Report prepared by RACHEAL Galeas, RVT RIGHT LOWER EXTREMITY: * Brachial artery: Pressure - 106 mmHg. * High thigh: Pressure - 127 mmHg: Ratio - 1.20: PVR waveform - Pulsatile * Low thigh: Pressure - 136 mmHg: Ratio - 1.28 PVR waveform: Pulsatile * Calf: Pressure - 116 mmHg: Ratio - 1.09 PVR waveform: Pulsatile * Posterior tibial Artery: Pressure - 107 mmHg: Ratio - 1.01 PVR waveform: Pulsatile * Dorsalis pedis Artery: Pressure - 120 mmHg: Ratio - 1.13 PVR waveform: Pulsatile * Great toe: Pressure - mmHg: Ratio - PVR waveform: Ankle brachial index (CHELSEA): 1.13 LEFT LOWER EXTREMITY: * Brachial artery: Pressure - 100 mmHg. * High thigh: Pressure - 117 mmHg: Ratio - 1.10: PVR waveform - Pulsatile * Low thigh: Pressure - 134 mmHg: Ratio - 1.26 PVR waveform: Pulsatile * Calf: Pressure - 117 mmHg: Ratio - 1.10 PVR waveform: Pulsatile * Posterior tibial Artery: Pressure - 102 mmHg: Ratio - 0.96 PVR waveform: Pulsatile * Dorsalis pedis Artery: Pressure - 114 mmHg: Ratio - 1.08 PVR waveform: Pulsatile * Great toe: Pressure - mmHg: Ratio - PVR waveform: Ankle brachial index (CHELSEA): 1.08 OTHER FINDINGS: Right: Left: IMPRESSION: Right: There was no evidence of hemodynamically significant arterial insufficiency in the right lower extremity. Left: There was no evidence of hemodynamically significant arterial insufficiency in the left lower extremity.
[2018-08-22] MEDS ORDERED: diltiaZEM 240 mg/24 Hours CD Cap PO SCH (16:34)
[2018-08-22] MEDS ORDERED: Oxycodone/Acetaminophen 5/325 mg Tab PO PRN (16:36)
[2018-08-22] MEDS: Lactated Ringer's 1,000 ML IV SCH ×2 (17:36→21:47)
--- NOTE | 2018-08-22 20:58 | CARD ---
APPROVED REPORT Date of service: 08/20/2018 EKG Measurement Heart [id number] <Conclusion> Atrial fibrillation Abnormal ECG
--- NOTE | 2018-08-22 20:59 | CARD ---
APPROVED REPORT Date of service: 08/20/2018 EKG Measurement Heart [id number] <Conclusion> Atrial fibrillation Moderate voltage criteria for LVH, may be normal variant Abnormal ECG
--- NOTE | 2018-08-22 21:53 | CP.PCM.PN ---
Subjective - Date & Time of Evaluation Date of Evaluation: 08/22/18 Time of Evaluation: 18:00 - Subjective Subjective: No complaints. Objective - Vital Signs/Intake and Output Vital Signs (last 24 hours): Temp Pulse Resp BP Pulse Ox 97.7 F 88 20 90/57 L 97 08/22/18 15:00 08/22/18 15:00 08/22/18 15:00 08/22/18 15:00 08/22/18 15:00 Intake and Output: 08/22/18 08/23/18 18:59 06:59 Intake Total 1330 Output Total 300 Balance 1030 - Medications Medications: Current Medications Carvedilol (Coreg) 25 mg PO BID [facility] Last Admin: 08/22/18 17:42 Dose: Not Given Diltiazem HCl (Cardizem) 60 mg PO TID [facility] Last Admin: 08/22/18 17:42 Dose: Not Given Docusate Sodium (Colace) 100 mg PO BID [facility] Last Admin: 08/22/18 17:41 Dose: 100 mg Enalapril Maleate (Vasotec) 5 mg PO DAILY [facility] Last Admin: 08/22/18 10:05 Dose: 5 mg Hydromorphone HCl (Dilaudid) 0.5 mg IVP Q15M PRN PRN Reason: Pain, severe (8-10) Last Admin: 08/21/18 20:25 Dose: 0.5 mg Cefazolin Sodium/Dextrose (Ancef Iv 1 Gm Duplex) 1 gm in 50 mls @ 100 mls/hr IVPB Q8H [facility]; Protocol Last Admin: 08/22/18 17:33 Dose: 100 mls/hr Dextrose/Sodium Chloride (Dextrose 5%/0.45% Ns 1000 Ml) 1,000 mls @ 100 mls/hr IV .Q10H [facility] Last Admin: 08/22/18 16:40 Dose: 100 mls/hr Lactated Ringer's (Lactated Ringer's) 1,000 mls @ 250 mls/hr IV .Q4H [facility] Last Admin: 08/22/18 21:47 Dose: Not Given Dextrose/Sodium Chloride (Dextrose 5%/0.45% Ns 1000 Ml) 1,000 mls @ 100 mls/hr IV .Q10H [facility] Last Admin: 08/22/18 21:47 Dose: 100 mls/hr Influenza Virus Vaccine (Fluzone Quad 1173-9759) 60 mcg IM .ONCE ONE Stop: 08/23/18 10:01 Metoclopramide HCl (Reglan) 10 mg IVP ACHS [facility] Last Admin: 08/22/18 21:41 Dose: 10 mg Nicotine (Nicoderm Cq) 1 patch TD DAILY [facility] Last Admin: 08/22/18 10:09 Dose: Not Given Ondansetron HCl (Zofran Inj) 4 mg IVP Q6 PRN PRN Reason: Nausea/Vomiting Last Admin: 08/22/18 17:20 Dose: 4 mg Oxycodone/Acetaminophen (Percocet 5/325 Mg Tab) 1 tab PO Q4H PRN PRN Reason: pain Stop: 08/24/18 18:50 Pantoprazole Sodium (Protonix Inj) 40 mg IVP DAILY [facility] Last Admin: 08/22/18 10:04 Dose: 40 mg Pneumococcal Polyvalent Vaccine (Pneumovax 23 Vaccine) 0.5 ml IM .ONCE ONE Stop: 08/23/18 10:01 - Labs Labs: 08/22/18 07:59 08/22/18 07:59 PT 13.4 SECONDS (9.7-12.2) H 08/22/18 11:42 INR 1.2 08/22/18 11:42 APTT 25 SECONDS (21-34) D 08/22/18 11:42 - Head Exam Head Exam: ATRAUMATIC - Eye Exam Eye Exam: Normal appearance - ENT Exam ENT Exam: Mucous Membranes Dry - Respiratory Exam Respiratory Exam: NORMAL BREATHING PATTERN - Cardiovascular Exam Cardiovascular Exam: +S1, +S2 - GI/Abdominal Exam GI & Abdominal Exam: Normal Bowel Sounds Assessment and Plan (1) Thrombocytopenia Assessment & Plan: Hepatitis C AB positive no liver disease by ultrasound ? low grade ITP Status: Acute (2) Anemia Assessment & Plan: surgical blood loss no iron/b12/folate deficiency Status: Acute
[2018-08-23] MEDS: ceFAZolin IV 1 gm in Dextrose 1 GM/50 ML BAG IVPB SCH ×3 (02:40→17:52)
[2018-08-23] MEDS: Dextrose 5%/0.45% NS 1,000 ML IV SCH ×4 (02:45→17:45)
[2018-08-23] MEDS: Lactated Ringer's 1,000 ML IV SCH ×5 (02:46→17:30)
[2018-08-23 08:36] LABS: BASO % 0.4 % (0.0-2.0); EOS % 0.5 % (0.0-4.0); LYMPH # 1.3 K/uL (1.0-4.3); LYMPH % 13.5 % (20.0-40.0); MEAN CELL VOLUME 90.8 fL (80.0-94.0); MEAN CORPUSCULAR HEMOGLOBIN 30.8 pg (27.0-31.0); MEAN CORPUSCULAR HGB CONC 33.9 g/dL (33.0-37.0); MONO # 1.3 K/uL (0.0-0.8); MONO % 13.3 % (0.0-10.0); NEUT # 7.1 K/uL (1.8-7.0); NEUT % 72.3 % (50.0-75.0); RBC 3.43 Mil/uL (4.40-5.90); RED CELL DISTRIBUTION WIDTH 14.1 % (11.5-14.5); WHITE BLOOD COUNT 9.8 K/uL (4.8-10.8)
[2018-08-23 08:40] LABS: HEMOGLOBIN 10.6 g/dL (12.0-18.0)
[2018-08-23 08:43] LABS: BLOOD UREA NITROGEN 12 mg/dL (9-20); CALCIUM 8.3 mg/dl (8.6-10.4); GFR NON-AFRICAN AMERICAN > 60
--- NOTE | 2018-08-23 09:07 | RAD ---
Date of service: 08/22/2018 PROCEDURE: Radiographs of the chest and abdomen (obstructive series) HISTORY: post hernia repair , vomitting COMPARISON: No prior. TECHNIQUE: AP radiograph of the chest, with upright and supine radiographs of the abdomen. FINDINGS: CHEST: Lungs: No consolidation. Mildly prominent appearing interstitial lung markings-a background interstitial lung disease is not excluded. Cardiovascular: Mild cardiomegaly. No significant pulmonary venous congestion. There is presence of aortic atherosclerotic calcification on x-ray. Pleura: No pleural fluid. No pneumothorax. Other findings: None. ABDOMEN AND PELVIS: Bowel: The gaseous distended cecum is 9 cm-nonspecific. Left lateral to it is a a possible small bowel loop (no haustral valvular like chondral bodies markings however are noted measuring approximately 5 cm in width. Its etiology and clinical significance (if any is unknown. One consideration is a minimal focal ileus here. In the left upper outer quadrant is a splenic flexure colonic loops with mural thickening suggested. No distension of this splenic flexure suggested. Right groin skin sutures present. No gross bowel gas here suggested in this patient with history of prior herniorrhaphy. Free air: None. Bones: Unremarkable. Other findings: None. IMPRESSION: Splenic flexure colonic perceived mural thickening without colonic distension of this segment. Etiology and clinical significance unclear. Consider CT of the abdomen and pelvis with IV and oral contrast to further evaluate. Gaseous distension cecum nonspecific not necessarily pathologic. Bordering the cecum is an indeterminate gaseous focus-a focal small bowel loop minimally dilated is favored. A focal ileus here is a consideration. Consider CT abdomen and pelvis to further evaluate. Other findings as above. Comments: Study marked for PA review .
[2018-08-23] MEDS ORDERED: Pneumococcal 23-Valent Vaccine IM ONE (10:00)
[2018-08-23] MEDS ORDERED: Influenza Vaccine 60 MCG/0.5 ML SYR (3 yr & up) IM ONE (10:00)
[2018-08-23] MEDS: HYDROmorphone 0.5 mg/0.5 ml ISec IVP PRN (10:50)
--- NOTE | 2018-08-23 12:01 | CP.PCM.PN ---
Subjective - Date & Time of Evaluation Date of Evaluation: 08/23/18 Time of Evaluation: 12:01 - Subjective Subjective: PGY2 Progress note for Dr. Delgado Patient was seen and examined at bedside. Patient reports having pain and swelling s/p hernia repair. The patient denies chest pain, palpitations, dyspnea, cough, nausea, vomiting, fevers, headaches, muscle aches, dysuria, and diarrhea. Objective - Vital Signs/Intake and Output Vital Signs (last 24 hours): Temp Pulse Resp BP Pulse Ox 98.6 F 101 H 20 104/70 97 08/23/18 07:28 08/23/18 07:28 08/23/18 07:28 08/23/18 10:44 08/23/18 07:28 Intake and Output: 08/23/18 08/23/18 06:59 18:59 Intake Total 920 Balance 920 - Medications Medications: Current Medications Carvedilol (Coreg) 25 mg PO BID [facility] Last Admin: 08/23/18 10:44 Dose: 25 mg Diltiazem HCl (Cardizem) 60 mg PO TID [facility] Last Admin: 08/23/18 10:43 Dose: 60 mg Docusate Sodium (Colace) 100 mg PO BID [facility] Last Admin: 08/23/18 10:44 Dose: 100 mg Enalapril Maleate (Vasotec) 5 mg PO DAILY [facility] Last Admin: 08/23/18 10:43 Dose: 5 mg Cefazolin Sodium/Dextrose (Ancef Iv 1 Gm Duplex) 1 gm in 50 mls @ 100 mls/hr IVPB Q8H [facility]; Protocol Last Admin: 08/23/18 10:44 Dose: 100 mls/hr Dextrose/Sodium Chloride (Dextrose 5%/0.45% Ns 1000 Ml) 1,000 mls @ 100 mls/hr IV .Q10H [facility] Last Admin: 08/23/18 02:45 Dose: 100 mls/hr Lactated Ringer's (Lactated Ringer's) 1,000 mls @ 250 mls/hr IV .Q4H [facility] Last Admin: 08/23/18 05:34 Dose: Not Given Dextrose/Sodium Chloride (Dextrose 5%/0.45% Ns 1000 Ml) 1,000 mls @ 100 mls/hr IV .Q10H [facility] Last Admin: 08/22/18 21:47 Dose: 100 mls/hr Metoclopramide HCl (Reglan) 10 mg IVP ACHS [facility] Last Admin: 08/23/18 08:03 Dose: 10 mg Nicotine (Nicoderm Cq) 1 patch TD DAILY [facility] Last Admin: 08/23/18 10:45 Dose: 1 patch Ondansetron HCl (Zofran Inj) 4 mg IVP Q6 PRN PRN Reason: Nausea/Vomiting Last Admin: 08/22/18 17:20 Dose: 4 mg Oxycodone/Acetaminophen (Percocet 5/325 Mg Tab) 1 tab PO Q4H PRN PRN Reason: pain Stop: 08/24/18 18:50 Pantoprazole Sodium (Protonix Inj) 40 mg IVP DAILY [facility] Last Admin: 08/23/18 10:44 Dose: 40 mg - Labs Labs: 08/23/18 08:18 08/23/18 08:18 PT 13.4 SECONDS (9.7-12.2) H 08/22/18 11:42 INR 1.2 08/22/18 11:42 APTT 25 SECONDS (21-34) D 08/22/18 11:42 - Constitutional Appears: No Acute Distress - Head Exam Head Exam: ATRAUMATIC, NORMAL INSPECTION - Eye Exam Eye Exam: EOMI, Normal appearance - ENT Exam ENT Exam: Mucous Membranes Moist - Respiratory Exam Respiratory Exam: Clear to Ausculation Bilateral, NORMAL BREATHING PATTERN. absent: Rales, Rhonchi, Wheezes, Respiratory Distress - Cardiovascular Exam Cardiovascular Exam: Irregular Rhythm, +S1, +S2. absent: Bradycardia, Tachycardia - GI/Abdominal Exam GI & Abdominal Exam: Soft, Tenderness (right inguinal region s/p surgery), Normal Bowel Sounds. absent: Distended, Firm, Guarding - Extremities Exam Extremities Exam: absent: Pedal Edema, Tenderness Additional comments: skin color changes right > left - Neurological Exam Neurological Exam: Alert, Awake, Oriented x3 - Psychiatric Exam Psychiatric exam: Normal Affect, Normal Mood - Skin Skin Exam: Dry, Intact, Warm Assessment and Plan - Assessment and Plan (Free Text) Plan: Incarcerated inguinal hernia -general surgery consult. Dr. Leung. recs appreciated. -pt is s/p hernia repair -post op nausea and vomiting, giving zofran and reglan dusky/blue extremity -arterial dopplers ordered hx of atrial fibrillation -coreg 25 mg po bid -cardizem 60 mg po bid -need to decide on resuming anticoagulation hx of constipation -colace 100 mg po bid thrombocytopenia -hiv 4th generation pending -hep panel pending -unclear etiology -heme/onc consult. Dr. Ponce. recs appreciated. Hx of HTN -enalapril 5 mg po daily hx of tobacco abuse -nicotine patch -encourage smoking cessation Nasusea -zofran 4 mg po q 6 hrs GI/DVT ppx -protonix 40 mg daily Patient was discharged by Dr. Leung and provided with full instructions by Dr. Leung. Patient must follow up with PMD within one week of discharge.
--- NOTE | 2018-08-23 15:57 | CP.PCM.PN ---
Subjective - Date & Time of Evaluation Date of Evaluation: 08/23/18 Time of Evaluation: 15:00 - Subjective Subjective: Has some post op pain. Objective - Vital Signs/Intake and Output Vital Signs (last 24 hours): Temp Pulse Resp BP Pulse Ox 98.6 F 76 20 93/59 L 97 08/23/18 07:28 08/23/18 13:55 08/23/18 13:55 08/23/18 13:55 08/23/18 07:28 Intake and Output: 08/23/18 08/23/18 06:59 18:59 Intake Total 920 1280 Balance 920 1280 - Medications Medications: Current Medications Carvedilol (Coreg) 25 mg PO BID [facility] Last Admin: 08/23/18 10:44 Dose: 25 mg Diltiazem HCl (Cardizem) 60 mg PO TID [facility] Last Admin: 08/23/18 13:55 Dose: Not Given Docusate Sodium (Colace) 100 mg PO BID [facility] Last Admin: 08/23/18 10:44 Dose: 100 mg Enalapril Maleate (Vasotec) 5 mg PO DAILY [facility] Last Admin: 08/23/18 10:43 Dose: 5 mg Cefazolin Sodium/Dextrose (Ancef Iv 1 Gm Duplex) 1 gm in 50 mls @ 100 mls/hr IVPB Q8H [facility]; Protocol Last Admin: 08/23/18 10:44 Dose: 100 mls/hr Dextrose/Sodium Chloride (Dextrose 5%/0.45% Ns 1000 Ml) 1,000 mls @ 100 mls/hr IV .Q10H [facility] Last Admin: 08/23/18 12:27 Dose: Not Given Lactated Ringer's (Lactated Ringer's) 1,000 mls @ 250 mls/hr IV .Q4H [facility] Last Admin: 08/23/18 13:34 Dose: Not Given Dextrose/Sodium Chloride (Dextrose 5%/0.45% Ns 1000 Ml) 1,000 mls @ 100 mls/hr IV .Q10H [facility] Last Admin: 08/23/18 07:45 Dose: Not Given Metoclopramide HCl (Reglan) 10 mg IVP ACHS [facility] Last Admin: 08/23/18 12:05 Dose: 10 mg Nicotine (Nicoderm Cq) 1 patch TD DAILY [facility] Last Admin: 08/23/18 10:45 Dose: 1 patch Ondansetron HCl (Zofran Inj) 4 mg IVP Q6 PRN PRN Reason: Nausea/Vomiting Last Admin: 08/22/18 17:20 Dose: 4 mg Oxycodone/Acetaminophen (Percocet 5/325 Mg Tab) 1 tab PO Q4H PRN PRN Reason: pain Stop: 08/24/18 18:50 Pantoprazole Sodium (Protonix Ec Tab) 40 mg PO DAILY [facility] - Labs Labs: 08/23/18 08:18 08/23/18 08:18 PT 13.4 SECONDS (9.7-12.2) H 08/22/18 11:42 INR 1.2 08/22/18 11:42 APTT 25 SECONDS (21-34) D 08/22/18 11:42 - Head Exam Head Exam: ATRAUMATIC - Eye Exam Eye Exam: Normal appearance - ENT Exam ENT Exam: Mucous Membranes Dry - Respiratory Exam Respiratory Exam: NORMAL BREATHING PATTERN - Cardiovascular Exam Cardiovascular Exam: +S1, +S2 - GI/Abdominal Exam GI & Abdominal Exam: Normal Bowel Sounds Assessment and Plan (1) Thrombocytopenia Assessment & Plan: Hepatitis C AB positive no liver disease by ultrasound ? low grade ITP Status: Acute (2) Anemia Assessment & Plan: surgical blood loss no iron/b12/folate deficiency Status: Acute
[2018-08-23 16:55] VITALS: TEMP 97.3; O2SAT 99
[2018-08-23 17:49] VITALS: BP 105/72; PULSE 97
[2018-08-24] MEDS ORDERED: Pantoprazole 40 mg EC Tab PO SCH (10:00)
--- NOTE | 2018-08-28 19:12 | CARD ---
APPROVED REPORT Date of service: 08/21/2018 EKG Measurement Heart [id number] <Conclusion> Atrial fibrillation Abnormal ECG
--- NOTE | 2018-08-29 07:58 | DS ---
HISTORY OF PRESENT ILLNESS: The patient was admitted to the hospital with chief complaint of inguinal hernia. The patient complained of dizziness and weakness, admitted with slight hematoma. The patient was placed on bed rest, supportive care. Hemoglobin is stable on discharge. I advised to hold Eliquis until he sees a vp of technology. DIAGNOSES: Status post hernia repair, atrial fibrillation, anemia, small hematoma of the . Basil Delgado MD
== END 2018-08-23 20:57 | disposition home or self-care (01) | DRG 161 ==
LOC: C.ER 11:38 → C.9E 12:25 → C.ER 14:37 → C.9S 15:51 → C.9E 17:22 → C.3T 18:15
PROVIDERS: ADMIT Internal Medicine Pulmonary Disease; ATTEND Internal Medicine Pulmonary Disease
PROC: 0VBF0ZZ Excision of Right Spermatic Cord, Open Approach (ICD-10-PCS; 2018-08-21)
PROC: 0YU50JZ Supplement Right Inguinal Region with Synthetic Substitute, Open Approach (ICD-10-PCS; principal; 2018-08-21 15:30)
DX: K40.30 Unilateral inguinal hernia, with obstruction, without gangrene, not specified as recurrent (principal); D17.6 Benign lipomatous neoplasm of spermatic cord; D69.6 Thrombocytopenia, unspecified; R11.2 Nausea with vomiting, unspecified; D72.819 Decreased white blood cell count, unspecified; I27.20 Pulmonary hypertension, unspecified; I48.91 Unspecified atrial fibrillation; D64.9 Anemia, unspecified; I10 Essential (primary) hypertension; K76.9 Liver disease, unspecified; Z79.899 Other long term (current) drug therapy; Z23 Encounter for immunization

== ENCOUNTER 2018-08-25 15:13 | Inpatient (IN) | payer MEDICAID ==
--- NOTE | 2018-08-25 15:15 | C.PDOC ---
History Of Present Illness 62 yr old male w/ hx of Afib on eliquis + cardizem, HTN on coreg and 5d s/p R inguinal hernia repair p/w dizziness described as lightheadedness. He notes low BP ever since he was D/C from this hospital after R inguinal hernia repair. No fall or trauma. No chest pain but pt notes mild sob. No leg swelling. Pt notes some dry blood coming from RLQ surgical site. No headache fever or neck stiffness. No other complaints. Time Seen by Provider: 08/25/18 15:14 Past Medical History - Medical History PMH: Atrial Fibrillation, Cardia Arrhythmia Denies: Chronic Kidney Disease - [facility] Procedures SUPPLEMENT R INGUINAL REGION WITH SYNTH SUB, OPEN APPROACH (08/20/18) Family History: States: Unknown Family Hx - Social History Hx Tobacco Use: No Hx Alcohol Use: No Hx Substance Use: No - Immunization History Hx Tetanus Toxoid Vaccination: No Hx Influenza Vaccination: No Hx Pneumococcal Vaccination: No Physical Exam - Physical Exam Appears: Well, Non-toxic, No Acute Distress Skin: Normal Color, Warm Head: Atraumatic, Normacephalic Eye(s): bilateral: Normal Inspection, PERRL, EOMI Ear(s): Bilateral: Normal Nose: Normal Oral Mucosa: Moist Tongue: Normal Appearing Lips: Normal Appearing Gingiva: Normal Appearing Throat: Normal, No Erythema, No Exudate Neck: Normal, Normal ROM, Supple, Other (no meningeal signs) Chest: Symmetrical, No Deformity, No Tenderness Cardiovascular: Rhythm Regular Respiratory: Normal Breath Sounds, No Decreased Breath Sounds, No Accessory Muscle Use Gastrointestinal/Abdominal: Soft, Tenderness (at surgical site ), No Mass, No Di stention, No Guarding, Other (jess noted to RLQ at surgical site, well hearling, no discharge or crepitus or erythema. ) Back: Normal Inspection, No CVA Tenderness, No Vertebral Tenderness, No Paraspinal Tenderness Neurological/Psych: Oriented x3, Normal Speech, Normal Cognition, Normal Cranial Nerves, No Cerebellar Signs, Normal Motor Gait: Steady Extremity: Right: No Drift, Left: No Drift, Upper: No Drift, Lower: No Drift ED Course And Treatment - Laboratory Results Result Diagrams: 08/26/18 08:05 08/26/18 08:05 Medical Decision Making Medical Decision Makin yr old male w/ hx of Afib on eliquis, HTN and 5d p/w dizziness described as lightheadedness. No chest pain. Pt also notes mild sob but is clear to auscultation b/l. Pt is on eiliquis+cardizem for Afib and pt notes taking his medications normally. He notes that ever since he had the procedure done his pressure has decreased- but that his medications were never adjusted. He notes normal RLQ pain where he had his inguinal repair 5d prior but no abnl d/c. No GI or Complaints. No fall or trauma. No dark or bloody stool. [address] BNP 2600, no previous. No leg swelling or venous congestion on XR. Fluids d/c. Pt non-orthostatic. Paged Dr. Delgado 1723 Appreciate consult w/ Dr. Delgado: accepts patient to obs. Endorsed Pending CTH And CT ABD pelvis. 1922 pt in NAD appreciate consult w/ Dr. Leung (surg)- we are to consult Dr. Bentley- to see in AM appreciate consult w/ Dr. Bentley: we are to call ICU and give 2U PRBC. Consent Done. PRBC ordered. appreciate consult w/ Dr. Ralph Wolf: to be admitted to his service ICU Left a message with Dr. Delgado- to call back Disposition - Disposition Disposition: HOSPITALIZED Disposition Time: 17:24 Condition: GOOD - Clinical Impression Clinical Impression: Elevated brain natriuretic peptide (BNP) level
[2018-08-25] MEDS ORDERED: Sodium Chloride 0.9% 1,000 ML IV SCH (15:45)
[2018-08-25] MEDS ORDERED: Sodium Chloride 0.9% 1,000 ML ONE (16:14)
[2018-08-25 16:27] LABS: VENOUS BLOOD GAS BASE EXCESS 4.5 mmol/L (0.0-2.0); VENOUS BLOOD GAS PCO2 54 mmHg (40-60); VENOUS BLOOD GAS PO2 17 mm/Hg (30-55); VENOUS BLOOD PH 7.37 (7.32-7.43)
[2018-08-25 16:39] LABS: BASO # 0.1 K/uL (0.0-0.2); BASO % 0.6 % (0.0-2.0); EOS # 0.2 K/uL (0.0-0.7); EOS % 1.5 % (0.0-4.0); HEMOGLOBIN 10.7 g/dL (12.0-18.0); LYMPH # 0.8 K/uL (1.0-4.3); MEAN CELL VOLUME 93.2 fL (80.0-94.0); MEAN CORPUSCULAR HEMOGLOBIN 31.3 pg (27.0-31.0); MEAN CORPUSCULAR HGB CONC 33.6 g/dL (33.0-37.0); MEAN PLATELET VOLUME 11.6 fL (7.2-11.7); MONO # 0.8 K/uL (0.0-0.8); MONO % 7.5 % (0.0-10.0); NEUT # 8.6 K/uL (1.8-7.0); NEUT % 82.4 % (50.0-75.0); PLATELET COUNT 106 K/uL (130-400); RBC 3.43 Mil/uL (4.40-5.90); RED CELL DISTRIBUTION WIDTH 13.7 % (11.5-14.5); WHITE BLOOD COUNT 10.4 K/uL (4.8-10.8)
[2018-08-25 16:54] LABS: ALB/GLOB RATIO 1.4 (1.0-2.1); ALBUMIN 4.2 g/dL (3.5-5.0); ALT/SGPT 16 U/L (21-72); AST/SGOT 23 U/L (17-59); BLOOD UREA NITROGEN 14 mg/dL (9-20); CALCIUM 8.6 mg/dl (8.6-10.4); GFR NON-AFRICAN AMERICAN > 60
[2018-08-25 17:00] LABS: B-TYPE NATRIURETIC PEPTIDE 2430 pg/mL (0-900)
[2018-08-25 17:12] LABS: INR 1.2; PROTHROMBIN TIME 13.1 SECONDS (9.7-12.2)
[2018-08-25] MEDS ORDERED: Iodixanol 320 MG/ML 100 ML BOTTLE IV ONE (17:30)
--- NOTE | 2018-08-25 19:04 | RAD ---
Chest x-ray two views History: Dizzy. Lightheaded. COMPARISON: None. Findings: Mild venous congestion. Tortuous ectatic aorta. Atherosclerotic calcification within the aorta. Bilateral hilar prominence. Heart size within limits. Degenerative changes in the spine. Impression: Mild venous congestion. Tortuous ectatic aorta. Atherosclerotic calcification within the aorta. Bilateral hilar prominence. Heart size within limits.
[2018-08-25 19:38] LABS: PLATELET ESTIMATE DECREASED (NORMAL)
[2018-08-25 19:41] LABS: BANDS 4 % (0-2); EOSINOPHIL 2 % (0-4); LYMPHOCYTE 8 % (20-40); MONOCYTE 7 % (0-10); NEUTROPHIL 79 % (50-75); TOTAL CELLS COUNTED 100
[2018-08-25 19:42] LABS: ANISOCYTOSIS SLIGHT; POIKILOCYTOSIS SLIGHT
[2018-08-25 19:43] LABS: GIANT PLATELETS PRESENT; HYPERSEGMENTATION PRESENT; LARGE PLATELETS PRESENT; SPHEROCYTES SLIGHT; TEARDROP CELLS SLIGHT
--- NOTE | 2018-08-25 20:14 | CP.PCM.CON ---
History of Present Illness - History of Present Illness History of Present Illness: 62 yo male with recent admission for right inguinal hernia presents to [facility] with c/o right sided surgical site pain, ecchymosis extending from right flank to right side of scrotum. Patient notes he did not take eliquis since surgery. Patient denies any fevers, denies any abdominal pain, denies any chest pain, denies any headaches. Pmx: HTN/A-fib on AC Psurg hx: right inguinal hernia Allergies: NKDA Social history: no h/o smoking, denies alcohol Review of Systems - Constitutional Constitutional: As Per HPI - Cardiovascular Cardiovascular: absent: Chest Pain, Chest Pain with Activity, Claudication, Pain Radiating to Arm/Neck/Jaw, Leg Edema - Respiratory Respiratory: absent: Cough, Dyspnea, Hemoptysis, Dyspnea on Exertion, Chest Congestion - Gastrointestinal Gastrointestinal: absent: Change in Stool Character, Coffee Ground Emesis, Constipation, Cramping, Hematochezia, Loose Stools - Integumentary Integumentary: Other Additional comments: ecchymosis - Neurological Neurological: absent: Abnormal Gait, Dizziness, Numbness Past Patient History - Infectious Disease Hx of Infectious Diseases: None - Tetanus Immunizations Tetanus Immunization: Unknown - Past Medical History & Family History Past Medical History?: Yes - Past Social History Smoking Status: Current Some Days Smoker - CARDIAC Hx Atrial Fibrillation: Yes Hx Cardia Arrhythmia: Yes - PULMONARY Hx Respiratory Disorders: No - NEUROLOGICAL Hx Neurological Disorder: No - HEENT Hx HEENT Problems: No - RENAL Hx Chronic Kidney Disease: No - ENDOCRINE/METABOLIC Hx Endocrine Disorders: No - HEMATOLOGICAL/ONCOLOGICAL Hx Blood Disorders: No - INTEGUMENTARY Hx Dermatological Problems: No - MUSCULOSKELETAL/RHEUMATOLOGICAL Hx Musculoskeletal Disorders: No Hx Falls: No - GASTROINTESTINAL Hx Gastrointestinal Disorders: No - GENITOURINARY/GYNECOLOGICAL Hx Genitourinary Disorders: No - PSYCHIATRIC Hx Substance Use: No - SURGICAL HISTORY Hx Surgeries: No Hx Herniorrhaphy: Yes (x1 week) - ANESTHESIA Hx Anesthesia: Yes Hx Anesthesia Reactions: No Meds Allergies/Adverse Reactions: Allergies Allergy/AdvReac Type Severity Reaction Status Date / Time No Known Allergies Allergy Verified 08/25/18 15:28 Physical Exam - Head Exam Head Exam: ATRAUMATIC, NORMAL INSPECTION, NORMOCEPHALIC - Eye Exam Eye Exam: EOMI Pupil Exam: NORMAL ACCOMODATION - ENT Exam ENT Exam: Mucous Membranes Moist - Respiratory Exam Respiratory Exam: Clear to Auscultation Bilateral, NORMAL BREATHING PATTERN - Cardiovascular Exam Cardiovascular Exam: Tachycardia, REGULAR RHYTHM, +S1, +S2 - GI/Abdominal Exam GI & Abdominal Exam: Normal Bowel Sounds - Exam Exam: Scrotal Swelling Additional comments: right inguinal ecchymosis - Extremities Exam Extremities exam: Positive for: normal inspection - Back Exam Back exam: NORMAL INSPECTION - Neurological Exam Neurological exam: Alert, CN II-XII Intact, Oriented x3 Results - Vital Signs Recent Vital Signs: Last Vital Signs Temp 99 F 08/25/18 18:25 Pulse 119 H 08/25/18 19:58 Resp 22 08/25/18 19:58 BP 117/75 08/25/18 19:58 Pulse Ox 98 08/25/18 19:58 - Labs Result Diagrams: 08/25/18 16:29 08/25/18 16:29 Labs: Laboratory Results - last 24 hr 08/25/18 08/25/18 08/25/18 15:25 15:28 16:08 WBC RBC Hgb Hct MCV MCH MCHC RDW Plt Count MPV Neut % (Auto) Lymph % (Auto) [place] % (Auto) Eos % (Auto) Baso % (Auto) Neut # (Auto) Lymph # (Auto) [place] # (Auto) Eos # (Auto) Baso # (Auto) Neutrophils % (Manual) Band Neutrophils % Lymphocytes % (Manual) Monocytes % (Manual) Eosinophils % (Manual) Hypersegmented Polys Platelet Estimate Large Platelets Giant Platelets Poikilocytosis (manual Anisocytosis (manual) Macrocytosis (manual) Spherocytes Tear Drop Cells PT INR APTT pO2 VBG pH VBG pCO2 VBG HCO3 VBG Total CO2 VBG O2 Sat (Calc) VBG Base Excess VBG Potassium Sodium Chloride Glucose Lactate Potassium Carbon Dioxide Anion Gap BUN Creatinine Est GFR ( Amer) Est GFR (Non-Af Amer) POC Glucose (mg/dL) 58 L 69 130 H Random Glucose Calcium Magnesium Total Bilirubin AST ALT Alkaline Phosphatase Total Creatine Kinase Troponin I NT-Pro-B Natriuret Pep Total Protein Albumin Globulin Albumin/Globulin Ratio TSH 3rd Generation Venous Blood Potassium Blood Type Blood Type Confirm Antibody Screen 08/25/18 08/25/18 08/25/18 16:23 16:29 16:29 WBC 10.4 RBC 3.43 L Hgb 10.7 L Hct 32.0 L MCV 93.2 D MCH 31.3 H MCHC 33.6 RDW 13.7 Plt Count 106 L D MPV 11.6 Neut % (Auto) 82.4 H Lymph % (Auto) 8.0 L [place] % (Auto) 7.5 Eos % (Auto) 1.5 Baso % (Auto) 0.6 Neut # (Auto) 8.6 H Lymph # (Auto) 0.8 L [place] # (Auto) 0.8 Eos # (Auto) 0.2 Baso # (Auto) 0.1 Neutrophils % (Manual) 79 H Band Neutrophils % 4 H Lymphocytes % (Manual) 8 L Monocytes % (Manual) 7 Eosinophils % (Manual) 2 Hypersegmented Polys Present Platelet Estimate Decreased L Large Platelets Present Giant Platelets Present Poikilocytosis (manual Slight Anisocytosis (manual) Slight Macrocytosis (manual) Slight Spherocytes Slight Tear Drop Cells Slight PT INR APTT pO2 17 L VBG pH 7.37 VBG pCO2 54 VBG HCO3 26.4 VBG Total CO2 32.9 H VBG O2 Sat (Calc) 15.5 L VBG Base Excess 4.5 H VBG Potassium 3.8 Sodium 135.0 133 Chloride 101.0 96 L Glucose 169 H Lactate 1.8 Potassium 4.0 Carbon Dioxide 25 Anion Gap 16 BUN 14 Creatinine 0.9 Est GFR ( Amer) > 60 Est GFR (Non-Af Amer) > 60 POC Glucose (mg/dL) Random Glucose 161 H Calcium 8.6 Magnesium 1.8 Total Bilirubin 1.3 AST 23 ALT 16 L D Alkaline Phosphatase 81 Total Creatine Kinase 82 Troponin I 0.0360 NT-Pro-B Natriuret Pep 2430 H Total Protein 7.2 Albumin 4.2 Globulin 3.0 Albumin/Globulin Ratio 1.4 TSH 3rd Generation 0.77 Venous Blood Potassium 3.8 Blood Type Blood Type Confirm Antibody Screen 08/25/18 08/25/18 16:29 16:40 WBC RBC Hgb Hct MCV MCH MCHC RDW Plt Count MPV Neut % (Auto) Lymph % (Auto) [place] % (Auto) Eos % (Auto) Baso % (Auto) Neut # (Auto) Lymph # (Auto) [place] # (Auto) Eos # (Auto) Baso # (Auto) Neutrophils % (Manual) Band Neutrophils % Lymphocytes % (Manual) Monocytes % (Manual) Eosinophils % (Manual) Hypersegmented Polys Platelet Estimate Large Platelets Giant Platelets Poikilocytosis (manual Anisocytosis (manual) Macrocytosis (manual) Spherocytes Tear Drop Cells PT 13.1 H INR 1.2 APTT 28 pO2 VBG pH VBG pCO2 VBG HCO3 VBG Total CO2 VBG O2 Sat (Calc) VBG Base Excess VBG Potassium Sodium Chloride Glucose Lactate Potassium Carbon Dioxide Anion Gap BUN Creatinine Est GFR ( Amer) Est GFR (Non-Af Amer) POC Glucose (mg/dL) Random Glucose Calcium Magnesium Total Bilirubin AST ALT Alkaline Phosphatase Total Creatine Kinase Troponin I NT-Pro-B Natriuret Pep Total Protein Albumin Globulin Albumin/Globulin Ratio TSH 3rd Generation Venous Blood Potassium Blood Type B POSITIVE Blood Type Confirm B POSITIVE Antibody Screen Negative Assessment & Plan - Assessment and Plan (Free Text) Assessment: -Right inguinal hematoma: monitor, serial cbc -A-fib: continue coreg/AV andrew harriet -restart home medications, avoid antiplatelets, avoid anticoagulation -thrombocytopenia: etiology unknown, heme/onc eval pending -dvt ppx scds --pud ppx protonix -npo Eliquis metabolizes out within 24-48 hours with normal kidney function close monitoring d/w Dr. Baugh - Date & Time Date: 08/25/18 Time: 20:19
[2018-08-25] MEDS ORDERED: Piperacillin/Tazobact 3.375 gm 100 ML IVPB STA (20:22)
[2018-08-25] MEDS: Lactated Ringer's 1,000 ML IV SCH (20:55)
[2018-08-26 06:05] LABS: URINE BILIRUBIN NEGATIVE (NEGATIVE); URINE BLOOD NEGATIVE (NEGATIVE); URINE CLARITY Clear (Clear); URINE COLOR Yellow (YELLOW); URINE GLUCOSE (UA) NORMAL (Normal); URINE HYALINE CAST 0-2 /lpf (0-2); URINE LEUKOCYTE ESTERASE NEG Leu/uL (Negative); URINE PROTEIN NEGATIVE (NEGATIVE)
--- NOTE | 2018-08-26 06:59 | CT ---
Date of service: 08/25/2018 PROCEDURE: CT HEAD WITHOUT CONTRAST. HISTORY: Dizziness. Headache. COMPARISON: None available. TECHNIQUE: Axial computed tomography images were obtained through the head/brain without intravenous contrast. Radiation dose: Total exam DLP = 1197.47 mGy-cm. This CT exam was performed using one or more of the following dose reduction techniques: Automated exposure control, adjustment of the mA and/or kV according to patient size, and/or use of iterative reconstruction technique. FINDINGS: HEMORRHAGE: No intracranial hemorrhage. BRAIN: No mass effect or edema. Scattered focal lucencies in the subcortical and periventricular white matter suggestive for chronic microvascular ischemic change. Generalized atrophy. Bilateral basal ganglia calcifications. Intracranial arterial calcifications. VENTRICLES: Unremarkable. No hydrocephalus. CALVARIUM: Unremarkable. PARANASAL SINUSES: Mild thickening of the ethmoid air cells and maxillary sinuses. MASTOID AIR CELLS: Unremarkable as visualized. No inflammatory changes. OTHER FINDINGS: None. IMPRESSION: Chronic microvascular ischemic changes. Diffuse cerebral and cerebellar atrophy. Sinus mucosal disease. If symptoms persists, consider correlation with MRI. These findings were preliminarily reported at 6:19 p.m. on 08/25/[address] Brock Blue from [facility].
[2018-08-26 08:11] LABS: BASO % 0.7 % (0.0-2.0); EOS # 0.1 K/uL (0.0-0.7); EOS % 1.8 % (0.0-4.0); HEMOGLOBIN 9.9 g/dL (12.0-18.0); LYMPH # 0.6 K/uL (1.0-4.3); LYMPH % 11.6 % (20.0-40.0); MEAN CORPUSCULAR HEMOGLOBIN 31.2 pg (27.0-31.0); MEAN CORPUSCULAR HGB CONC 34.3 g/dL (33.0-37.0); MONO # 0.6 K/uL (0.0-0.8); MONO % 10.7 % (0.0-10.0); NEUT # 4.1 K/uL (1.8-7.0); NEUT % 75.2 % (50.0-75.0); RBC 3.19 Mil/uL (4.40-5.90); RED CELL DISTRIBUTION WIDTH 13.8 % (11.5-14.5); WHITE BLOOD COUNT 5.4 K/uL (4.8-10.8)
[2018-08-26 08:23] LABS: MEAN CELL VOLUME 90.9 fL (80.0-94.0)
[2018-08-26 08:33] LABS: INR 1.2; PROTHROMBIN TIME 13.5 SECONDS (9.7-12.2)
--- NOTE | 2018-08-26 08:34 | US ---
Testicular ultrasound HISTORY: Evaluate testicular flow. Comparison: None available. Findings: Diffuse scrotal edema. Right testes: 4.7 x 1.9 x 2.2 centimeters. Normal flow. Homogeneous echotexture. Right scrotal hydrocele. Right epididymis measures 1.3 x 1.0 x 1.2 centimeters. Normal flow. Heterogeneous epididymal cysts measure 5 x 5 x 5 and 7 x 4 x 7 millimeters. Left testes: 3.9 x 1.8 x 2.0 centimeters. Normal flow. Homogeneous echotexture. Lateral left testicular cysts measuring 3 x 3 x 3 and 3 x 2 x 3 millimeters. Left epididymis measures 1.4 x 0.9 x 1.6 centimeters. Normal flow. Hypoechoic cyst measuring 3 x 2 x 2 millimeters. Prominent lymph node measuring 1.2 centimeters in the right inguinal region. Free fluid, swelling, edema in the right inguinal region. Impression: Left testicular cysts as described above. Small right scrotal hydrocele. Scrotal wall thickening and edema. Bilateral epididymal cysts. Prominent lymph node measuring 1.2 centimeters in the right inguinal region. Free fluid, swelling, edema in the right inguinal region. A preliminary report was generated at 2:27 a.m. on 08/26/[address] Letitia Burrell from [facility].
[2018-08-26 08:36] LABS: ALB/GLOB RATIO 1.2 (1.0-2.1); ALBUMIN 3.5 g/dL (3.5-5.0); ALT/SGPT 20 U/L (21-72); AST/SGOT 22 U/L (17-59); BLOOD UREA NITROGEN 10 mg/dL (9-20); CALCIUM 8.5 mg/dl (8.6-10.4); GFR NON-AFRICAN AMERICAN > 60
[2018-08-26] MEDS: Lactated Ringer's 1,000 ML IV SCH (10:21)
--- NOTE | 2018-08-26 11:03 | CT ---
Date of service: 08/25/2018 PROCEDURE: CT Abdomen and Pelvis with intravenous contrast HISTORY: hx of recent inguinal repair COMPARISON: None. TECHNIQUE: Multiple contiguous axial images were performed through the abdomen and pelvis with the use of intravenous contrast. Subsequently, sagittal and coronal reformatted images were obtained. Radiation dose: Total exam DLP = 425.72 mGy-cm. This CT exam was performed using one or more of the following dose reduction techniques: Automated exposure control, adjustment of the mA and/or kV according to patient size, and/or use of iterative reconstruction technique. FINDINGS: LOWER THORAX: Mild atelectasis at the lung bases. 1.3 centimeter focal area of consolidation seen within the anterior medial aspect of the right lower lobe of the lung on series 3, image 1 abutting the heart. This is of uncertain clinical etiology. Correlation with chest CT may be helpful if clinically indicated. LIVER: Prominent liver. Mild intrahepatic biliary ductal dilatation. Periportal edema. GALLBLADDER AND BILE DUCTS: Distended gallbladder. PANCREAS: Unremarkable. No gross lesion or ductal dilatation. SPLEEN: Unremarkable. ADRENALS: Unremarkable. No mass. KIDNEYS AND URETERS: Unremarkable. No hydronephrosis. No solid mass. Punctate hypodensity in lower pole of the left kidney, too small to adequately characterize. VASCULATURE: Unremarkable. No aortic aneurysm. Aortic atherosclerotic calcification or mural plaque present. BOWEL: Small hiatal hernia. Thick-walled stomach. Few distended loops of small bowel in the upper and mid abdomen. Redundant sigmoid colon. Fecal retention in the colon. Focal underdistention and or thickening at the level of the hepatic flexure of the colon as well as distal ascending colon. Suggestion of a retroperitoneal collection and or mass abutting the cecum in the right lower quadrant also suggestive for large retroperitoneal hematoma. Malignant mass needs to be clinically excluded. Continued interval follow-up is recommended. Marked inflammatory stranding in the right lower quadrant. Fluid noted within the right paracolic gutter. Presacral fluid collection consistent with ascites and diffuse anasarca. APPENDIX: Partially imaged. Suggestion of a distal appendicolith measuring up to 1.5 centimeters. Normal width. Clinical correlation. PERITONEUM: Within the right mid abdomen extending inferiorly into the right inguinal region, there is a large heterogeneous collection which measures approximately 9.0 x 8.0 x 18.0 centimeters extending through the inguinal canal. This would be concerning for prominent complex hematogenous collection/hematoma. There is a suggestion of some free intraperitoneal air at the anterior margin of the lesion as demonstrated on series 3, image 127 which may be related to recent postoperative status. The collection appears to extend deep into the right inguinal canal and region at the site of the recent surgery. Overlying surgical jess are noted within the right inguinal region. LYMPH NODES: Shotty para-aortic and inguinal lymph nodes. Shotty mesenteric lymph nodes BLADDER: Thick-walled urinary bladder. Displaced in a right lateral direction secondary to compressive mass effect from the adjacent probable hematoma. REPRODUCTIVE: Prominent and heterogeneous prostate. BONES: Degenerative changes in the spine. Mild to moderate compression fracture deformities involving the L1 through L3 vertebral bodies secondary to collapse of the inferior endplate. OTHER FINDINGS: Diffuse anasarca. IMPRESSION: 1. Within the right mid abdomen extending inferiorly into the right inguinal region, there is a large heterogeneous collection which measures approximately 9.0 x 8.0 x 18.0 centimeters extending through the inguinal canal. This would be concerning for prominent complex hematogenous collection/hematoma. There is a suggestion of some free intraperitoneal air at the anterior margin of the lesion as demonstrated on series 3, image 127 which may be related to recent postoperative status. The collection appears to extend deep into the right inguinal canal and region at the site of the recent surgery. Overlying surgical jess are noted within the right inguinal region. 2. Focal underdistention and or thickening at the level of the hepatic flexure of the colon as well as distal ascending colon. Suggestion of a retroperitoneal collection and or mass abutting the cecum in the right lower quadrant also suggestive for large retroperitoneal hematoma. Malignant mass needs to be clinically excluded. Continued interval follow-up is recommended. Marked inflammatory stranding in the right lower quadrant. 3. Fluid noted within the right paracolic gutter. 4. Presacral fluid collection consistent with ascites and diffuse anasarca. 5. Thick-walled urinary bladder. Displaced in a right lateral direction secondary to compressive mass effect from the adjacent probable hematoma. 6. Partially imaged appendix. Suggestion of a distal appendicolith measuring up to 1.5 centimeters. Normal width. Clinical correlation. 7. 1.3 centimeter focal area of consolidation seen within the anterior medial aspect of the right lower lobe of the lung on series 3, image 1 abutting the heart. This is of uncertain clinical etiology. Correlation with chest CT may be helpful if clinically indicated. Additional findings as above. A preliminary report was generated at 7:23 p.m. on 08/25/[address] Brock Blue from [facility].
[2018-08-26] MEDS: Oxycodone/Acetaminophen 5/325 mg Tab PO PRN ×2 (13:38→17:46)
[2018-08-26 13:49] LABS: HEMOGLOBIN 9.7 g/dL (12.0-18.0); MEAN CELL VOLUME 91.4 fL (80.0-94.0); MEAN CORPUSCULAR HEMOGLOBIN 31.5 pg (27.0-31.0); MEAN CORPUSCULAR HGB CONC 34.5 g/dL (33.0-37.0); MEAN PLATELET VOLUME 10.7 fL (7.2-11.7); RBC 3.06 Mil/uL (4.40-5.90); RED CELL DISTRIBUTION WIDTH 13.7 % (11.5-14.5); WHITE BLOOD COUNT 5.5 K/uL (4.8-10.8)
[2018-08-27 06:16] LABS: HEMOGLOBIN 9.8 g/dL (12.0-18.0); MEAN CELL VOLUME 90.9 fL (80.0-94.0); MEAN CORPUSCULAR HEMOGLOBIN 31.7 pg (27.0-31.0); MEAN CORPUSCULAR HGB CONC 34.9 g/dL (33.0-37.0); RBC 3.09 Mil/uL (4.40-5.90); RED CELL DISTRIBUTION WIDTH 13.8 % (11.5-14.5); WHITE BLOOD COUNT 6.5 K/uL (4.8-10.8)
[2018-08-27 06:28] LABS: ALB/GLOB RATIO 1.2 (1.0-2.1); ALBUMIN 3.3 g/dL (3.5-5.0); ALT/SGPT 22 U/L (21-72); AST/SGOT 17 U/L (17-59); BLOOD UREA NITROGEN 11 mg/dL (9-20); CALCIUM 8.3 mg/dl (8.6-10.4); GFR NON-AFRICAN AMERICAN > 60
--- NOTE | 2018-08-27 07:20 | PN ---
DATE: 08/26/2018 SUBJECTIVE: The patient was admitted to the hospital yesterday with a history of lightheadedness. On a CT scan of the abdomen and pelvis, he was found to have an 8 x 12 pelvic hematoma and a slight drop in his hemoglobin from a previous hemoglobin he had had when he was discharged four days ago. He is five days status post a right inguinal hernia repair. PHYSICAL EXAMINATION GENERAL: Today, he is complaining of pain in his right groin and testicle. VITAL SIGNS: His temperature is 98.6, pulse is 112, respiratory rate is 17, O2 saturation is 100, BP is 145/102. ABDOMEN: Examination of the abdomen reveals an intact incision which is healing nicely. There is some ecchymosis noted inferiorly in the inguinal crease. There is also some ecchymosis of the scrotum, but no hematoma. IMPRESSION: The patient developed a small retroperitoneal hematoma secondary to taking Eliquis postoperatively. He did not have symptoms of this while hospitalized postoperatively. He should be observed till tomorrow. We will monitor his hemoglobin and hematocrit. Otherwise, there is no need for operative management and can be followed as an outpatient in my office. Gregory Leung MD
--- NOTE | 2018-08-27 07:24 | HP ---
HISTORY OF PRESENT ILLNESS: A 62-year-old male, admitted to the hospital with pain, swelling, and dizziness. The patient came to the ER, advised admission. The patient has history of status post and hernia repair. Presented with AFib, thrombocytopenia. PHYSICAL EXAMINATION: GENERAL: The patient is awake, alert, and oriented. VITAL SIGNS: Temperature 98, pulse 90. HEENT: Within normal limits. NECK: Supple. CHEST: Symmetrical. HEART: Regular. ABDOMEN: Soft. There is some slight hematoma on the groin. EXTREMITIES: No edema. ASSESSMENT AND PLAN: The patient suffers from atrial fibrillation, status post hernia repair, mild hematoma. At this point, we will monitor hemoglobin and hematocrit, hold anticoagulation. Basil Delgado MD
[2018-08-27 07:40] VITALS: O2SAT 97
[2018-08-27 07:51] VITALS: TEMP 98.3
[2018-08-27 10:01] VITALS: PULSE 106; RESP 15
[2018-08-27 10:38] VITALS: BP 142/88
--- NOTE | 2018-08-27 11:39 | CP.PCM.PN ---
Subjective - Date & Time of Evaluation Date of Evaluation: 08/27/18 Time of Evaluation: 11:35 - Subjective Subjective: PGY3 Note for Dr. Jordan This patient was seen and examined at bedside this AM; denies any complaints; states that still has pain in R groin however improved. The patient denies fevers/chills, DOMINGUEZ, CP, SOB, abdominal pain, N/V/D, dysuria/freq/urg or lower extremity pain/swelling. Objective - Vital Signs/Intake and Output Vital Signs (last 24 hours): Temp Pulse Resp BP Pulse Ox 98.3 F 106 H 15 142/88 97 08/27/18 04:00 08/27/18 10:38 08/27/18 09:00 08/27/18 10:39 08/27/18 09:00 Intake and Output: 08/27/18 08/27/18 06:59 18:59 Intake Total 600 Output Total 600 Balance 0 - Medications Medications: Current Medications Carvedilol (Coreg) 25 mg PO BID [facility] Last Admin: 08/27/18 10:39 Dose: 25 mg Diltiazem HCl (Cardizem) 60 mg PO TID [facility] Last Admin: 08/27/18 10:39 Dose: 60 mg Enalapril Maleate (Vasotec) 5 mg PO BID [facility] Last Admin: 08/27/18 10:39 Dose: 5 mg Ferric Sodium Gluconate Complex 125 mg/ Sodium Chloride 110 mls @ 105 mls/hr IVPB ONCE ONE Stop: 08/27/18 13:02 Oxycodone/Acetaminophen (Percocet 5/325 Mg Tab) 2 tab PO Q4H PRN PRN Reason: pain Stop: 08/29/18 10:20 Last Admin: 08/26/18 17:46 Dose: 2 tab Pantoprazole Sodium (Protonix Inj) 40 mg IVP DAILY [facility] Last Admin: 08/27/18 10:38 Dose: 40 mg - Labs Labs: 08/27/18 06:05 08/27/18 06:03 PT 13.5 SECONDS (9.7-12.2) H 08/26/18 08:05 INR 1.2 08/26/18 08:05 APTT 29 SECONDS (21-34) 08/26/18 08:05 - Constitutional Appears: Well, Non-toxic - Head Exam Head Exam: ATRAUMATIC - Eye Exam Eye Exam: EOMI, Normal appearance, PERRL - Neck Exam Neck Exam: Full ROM. absent: Lymphadenopathy - Respiratory Exam Respiratory Exam: Clear to Ausculation Bilateral, NORMAL BREATHING PATTERN. absent: Rales, Rhonchi, Wheezes - Cardiovascular Exam Cardiovascular Exam: Irregular Rhythm, +S1, +S2. absent: REGULAR RHYTHM - GI/Abdominal Exam GI & Abdominal Exam: Soft, Normal Bowel Sounds (there is swelling in the right groin, hematoma, non bleeding, non painful to palpation but hurts when patient moves. ) - Extremities Exam Extremities Exam: Full ROM. absent: Calf Tenderness - Back Exam Back Exam: NORMAL INSPECTION. absent: CVA tenderness (L), CVA tenderness (R) - Neurological Exam Neurological Exam: Alert, Awake, Oriented x3 - Psychiatric Exam Psychiatric exam: Normal Affect - Skin Skin Exam: Warm Assessment and Plan - Assessment and Plan (Free Text) Assessment: 62yo M admitted for R Inguinal Hematoma R Inguinal Hematoma -the patients H/H has been stable -the patient needs to followup within the week for a repeat CBC -d/c eliquis for the time being, as well as aspirin Afibb -c/w with Cardizem, diltiazem, ramipril -fill prescription for blood pressure cuff Anemia -c/w to take iron pills -if becomes constipated; recommend colace and increase h20 and fiber intake Case discussed and seen with Dr. Jordan the patient is stable for d/c as per dr. jordan again discontinue eliquis and aspirin and restart only when told to by PCP or surgeon continue with cardizem, diltiazem, and ramipril fill prescription for blood pressure cuff and monitor daily after taking BP meds fill prescription for iron pills; take daily with orange juice; if you become constipated take colace OTC [place]Pun[place] PGY3
[2018-08-27] MEDS ORDERED: Ferric Sodium Gluconat Complex 125 MG in Sodium Chloride 0.9% 100 ML IVPB ONE (12:00)
[2018-08-27] MEDS: Oxycodone/Acetaminophen 5/325 mg Tab PO PRN (12:01)
--- NOTE | 2018-08-27 15:05 | CP.PCM.CON ---
History of Present Illness - History of Present Illness History of Present Illness: CARDIOLOGY CONSULT NOTE Reason for consult: Afib HPI: Patient is a 62 year old man with history of persistent AFib (on Eliquis at home); mild LV dysfunction (EF 45% in 10/2017); HTN; tobacco use; who recently underewnt R inguinal hernia repair on 08/22/18. He presented to [facility] for dizziness and pain at surgical site with ecchymosis. His Eliquis has been on hold since his hernia repair. He denies any SOB, chest pain, palpitations, or syncope. Cardiolgoy is now consulted. ROS: as above, otherwise negative Pmx: HTN, persistent A-fib on Eliquis Psurg hx: right inguinal hernia Allergies: NKDA Social history: no h/o smoking, denies alcohol Meds: reviewed All: reviewed Past Patient History - Infectious Disease Hx of Infectious Diseases: None - Tetanus Immunizations Tetanus Immunization: Unknown - Past Medical History & Family History Past Medical History?: Yes - Past Social History Smoking Status: Current Some Days Smoker - CARDIAC Hx Atrial Fibrillation: Yes Hx Cardia Arrhythmia: Yes - PULMONARY Hx Respiratory Disorders: No - NEUROLOGICAL Hx Neurological Disorder: No - HEENT Hx HEENT Problems: No - RENAL Hx Chronic Kidney Disease: No - ENDOCRINE/METABOLIC Hx Endocrine Disorders: No - HEMATOLOGICAL/ONCOLOGICAL Hx Blood Disorders: No - INTEGUMENTARY Hx Dermatological Problems: No - MUSCULOSKELETAL/RHEUMATOLOGICAL Hx Musculoskeletal Disorders: No Hx Falls: No - GASTROINTESTINAL Hx Gastrointestinal Disorders: No - GENITOURINARY/GYNECOLOGICAL Hx Genitourinary Disorders: No - PSYCHIATRIC Hx Substance Use: No - SURGICAL HISTORY Hx Surgeries: No Hx Herniorrhaphy: Yes (x1 week) - ANESTHESIA Hx Anesthesia: Yes Hx Anesthesia Reactions: No Meds Home Medications: Home Medication List Medication Instructions Recorded Confirmed Type Blood Pressure Test Kit [Blood 1 each MC DAILY #1 kit 08/27/18 Rx Pressure Kit] Ferrous Sulfate/Vit C/Folic AC 1 each PO DAILY #30 tablet.er 08/27/18 Rx [Folitab 500 Caplet] Allergies/Adverse Reactions: Allergies Allergy/AdvReac Type Severity Reaction Status Date / Time No Known Allergies Allergy Verified 08/25/18 15:28 - Medications Medications: Current Medications Carvedilol (Coreg) 25 mg PO BID [facility] Last Admin: 08/27/18 10:39 Dose: 25 mg Diltiazem HCl (Cardizem) 60 mg PO TID [facility] Last Admin: 08/27/18 14:30 Dose: 60 mg Enalapril Maleate (Vasotec) 5 mg PO BID [facility] Last Admin: 08/27/18 10:39 Dose: 5 mg Oxycodone/Acetaminophen (Percocet 5/325 Mg Tab) 2 tab PO Q4H PRN PRN Reason: pain Stop: 08/29/18 10:20 Last Admin: 08/27/18 12:01 Dose: 2 tab Pantoprazole Sodium (Protonix Inj) 40 mg IVP DAILY [facility] Last Admin: 08/27/18 10:38 Dose: 40 mg Physical Exam - Constitutional Appears: Well - Head Exam Head Exam: ATRAUMATIC - Eye Exam Eye Exam: Normal appearance - ENT Exam ENT Exam: Mucous Membranes Moist - Neck Exam Neck exam: Positive for: Normal Inspection - Respiratory Exam Respiratory Exam: Clear to Auscultation Bilateral, NORMAL BREATHING PATTERN - Cardiovascular Exam Cardiovascular Exam: Irregular Rhythm, +S2. absent: Systolic Murmur - GI/Abdominal Exam GI & Abdominal Exam: Soft - Extremities Exam Extremities exam: Negative for: pedal edema - Neurological Exam Neurological exam: Oriented x3 - Psychiatric Exam Psychiatric exam: Normal Affect, Normal Mood Results - Vital Signs Recent Vital Signs: Last Vital Signs Temp 98.3 F 08/27/18 04:00 Pulse 106 H 08/27/18 10:38 Resp 15 08/27/18 09:00 BP 142/88 08/27/18 10:39 Pulse Ox 97 08/27/18 09:00 - Labs Result Diagrams: 08/27/18 06:05 08/27/18 06:03 Labs: Laboratory Results - last 24 hr 08/26/18 08/26/18 08/27/18 08:05 08:05 06:03 WBC RBC Hgb Hct MCV MCH MCHC RDW Plt Count MPV Sodium 133 Potassium 4.2 Chloride 97 L Carbon Dioxide 28 Anion Gap 12 BUN 11 Creatinine 0.8 Est GFR ( Amer) > 60 Est GFR (Non-Af Amer) > 60 Random Glucose 104 Calcium 8.3 L Phosphorus 3.5 Magnesium 1.7 Total Bilirubin 1.2 AST 17 D ALT 22 Alkaline Phosphatase 73 Total Protein 6.1 L Albumin 3.3 L Globulin 2.8 Albumin/Globulin Ratio 1.2 Hep Bs Antibody Negative Hepatitis C Antibody Reactive 08/27/18 06:05 WBC 6.5 RBC 3.09 L Hgb 9.8 L Hct 28.1 L MCV 90.9 MCH 31.7 H MCHC 34.9 RDW 13.8 Plt Count 125 L D MPV 11.0 Sodium Potassium Chloride Carbon Dioxide Anion Gap BUN Creatinine Est GFR ( Amer) Est GFR (Non-Af Amer) Random Glucose Calcium Phosphorus Magnesium Total Bilirubin AST ALT Alkaline Phosphatase Total Protein Albumin Globulin Albumin/Globulin Ratio Hep Bs Antibody Hepatitis C Antibody - Impressions Impression: EKG: Afib, nonspecific ST-T wave abnormalities Assessment & Plan - Assessment and Plan (Free Text) Assessment: 1. Borderline hypotension 2. Persistent afib -- rate controlled, Eliquis on hold due to postop ecchymosis/bleeding 3. Mild LV dysfunction (EF 45% in 10/2017) -- not in clinical heart failure Plan: 1. Agree with holding Eliquis due to recent surgery and ? postop bleeding 2. D/c enalapril for now due to borderline hypotension 3. Cont carvedilol and cardizem for afib rate control No further cardiac workup required for now If patient is being discharged, then should follow up with Dr. Retana in 1-2 weeks
--- NOTE | 2018-08-27 21:14 | CP.PCM.CON ---
Past Patient History - Infectious Disease Hx of Infectious Diseases: None - Tetanus Immunizations Tetanus Immunization: Unknown - Past Medical History & Family History Past Medical History?: Yes - Past Social History Smoking Status: Current Some Days Smoker - CARDIAC Hx Atrial Fibrillation: Yes Hx Cardia Arrhythmia: Yes - PULMONARY Hx Respiratory Disorders: No - NEUROLOGICAL Hx Neurological Disorder: No - HEENT Hx HEENT Problems: No - RENAL Hx Chronic Kidney Disease: No - ENDOCRINE/METABOLIC Hx Endocrine Disorders: No - HEMATOLOGICAL/ONCOLOGICAL Hx Blood Disorders: No - INTEGUMENTARY Hx Dermatological Problems: No - MUSCULOSKELETAL/RHEUMATOLOGICAL Hx Musculoskeletal Disorders: No Hx Falls: No - GASTROINTESTINAL Hx Gastrointestinal Disorders: No - GENITOURINARY/GYNECOLOGICAL Hx Genitourinary Disorders: No - PSYCHIATRIC Hx Substance Use: No - SURGICAL HISTORY Hx Surgeries: No Hx Herniorrhaphy: Yes (x1 week) - ANESTHESIA Hx Anesthesia: Yes Hx Anesthesia Reactions: No Meds Home Medications: Home Medication List Medication Instructions Recorded Confirmed Type Blood Pressure Test Kit [Blood 1 each MC DAILY #1 kit 08/27/18 Rx Pressure Kit] Ferrous Sulfate/Vit C/Folic AC 1 each PO DAILY #30 tablet.er 08/27/18 Rx [Folitab 500 Caplet] Ondansetron HCl [Zofran] 4 mg PO TID PRN #45 tablet 08/27/18 Rx Allergies/Adverse Reactions: Allergies Allergy/AdvReac Type Severity Reaction Status Date / Time No Known Allergies Allergy Verified 08/25/18 15:28 Results - Vital Signs Recent Vital Signs: Last Vital Signs Temp 98.3 F 08/27/18 04:00 Pulse 106 H 08/27/18 10:38 Resp 15 08/27/18 09:00 BP 142/88 08/27/18 10:39 Pulse Ox 97 08/27/18 09:00 - Labs Result Diagrams: 08/27/18 06:05 08/27/18 06:03 Labs: Laboratory Results - last 24 hr 08/26/18 08/26/18 08/27/18 08:05 08:05 06:03 WBC RBC Hgb Hct MCV MCH MCHC RDW Plt Count MPV Sodium 133 Potassium 4.2 Chloride 97 L Carbon Dioxide 28 Anion Gap 12 BUN 11 Creatinine 0.8 Est GFR ( Amer) > 60 Est GFR (Non-Af Amer) > 60 Random Glucose 104 Calcium 8.3 L Phosphorus 3.5 Magnesium 1.7 Total Bilirubin 1.2 AST 17 D ALT 22 Alkaline Phosphatase 73 Total Protein 6.1 L Albumin 3.3 L Globulin 2.8 Albumin/Globulin Ratio 1.2 Hep Bs Antibody Negative Hepatitis C Antibody Reactive 08/27/18 06:05 WBC 6.5 RBC 3.09 L Hgb 9.8 L Hct 28.1 L MCV 90.9 MCH 31.7 H MCHC 34.9 RDW 13.8 Plt Count 125 L D MPV 11.0 Sodium Potassium Chloride Carbon Dioxide Anion Gap BUN Creatinine Est GFR ( Amer) Est GFR (Non-Af Amer) Random Glucose Calcium Phosphorus Magnesium Total Bilirubin AST ALT Alkaline Phosphatase Total Protein Albumin Globulin Albumin/Globulin Ratio Hep Bs Antibody Hepatitis C Antibody
--- NOTE | 2018-08-27 23:02 | CARD ---
APPROVED REPORT Date of service: 08/25/2018 EKG Measurement Heart [id number] <Conclusion> Atrial fibrillation Abnormal ECG
[2018-08-28] MEDS ORDERED: Ferric Sodium Gluconat Complex 62.5 mg/5 ml Vial IVPB ONE (11:04)
== END 2018-08-27 17:45 | disposition home or self-care (01) | DRG 201 ==
LOC: C.ER 15:13 → C.9E 18:23 → C.6T 19:04 → C.9E 19:23 → C.9I 19:48
PROVIDERS: ADMIT Internal Medicine Pulmonary Disease; ATTEND Internal Medicine Pulmonary Disease
DX: I48.1 Persistent atrial fibrillation (principal); K66.1 Hemoperitoneum; D69.6 Thrombocytopenia, unspecified; I95.9 Hypotension, unspecified; D64.9 Anemia, unspecified; R79.89 Other specified abnormal findings of blood chemistry; I10 Essential (primary) hypertension; F17.210 Nicotine dependence, cigarettes, uncomplicated; Z98.890 Other specified postprocedural states; T45.515A Adverse effect of anticoagulants, initial encounter